=== PATIENT | female | born 1990 | race Caucasian/White ===

== ENCOUNTER → 2016-09-27 | Outpatient (CLI) | payer OTHER ==
--- NOTE | 2016-09-27 14:47 | US ---
EXAMINATION TYPE: US OB <= 14 wk fetus DATE OF EXAM: 09/27/2016 2:33 PM COMPARISON: NONE CLINICAL HISTORY: Confirm Dates, pt has no complaints at this time EXAM PERFORMED: Transabdominal (TA) EXAM MEASUREMENTS: GESTATIONAL AGE / DATING Physician Established: (9 weeks/0 days) EDC: 05/02/2017 Dates by LMP: (9 weeks/0 days) EDC: 05/02/2017 Dates by First Scan: No Prior Dates by Current Scan for: (9 weeks/4 days) EDC: 04/28/2017 MATERNAL ANATOMY Uterus: 9.6 x 6.6 x 7.6 cm Right Ovary: 2.5 x 1.7 x 1.8 cm Left Ovary: 3.2 x 2.4 x 2.8 cm Post CDS / Adnexa: wnl Presence of free fluid: No Presence of corpus luteal cyst: Left Ovary= 2.2 x 2.1 x 2.2 cm Presence of subchorionic bleed: No GESTATION / SURVEY CRL: 2.8 cm (9 weeks/4 days) MSD: wnl Yolk Sac (normal less than 6mm): 3mm Heart Rate: 170 bpm Rhythm: Normal IUP: Viable IUP Date of LMP: 07/26/2016 IMPRESSION: Single, viable IUP/ No abnormality seen at this time
== END | disposition home or self-care (01) ==
LOC: RADUSWWP 14:20
PROVIDERS: ATTEND Obstetrics & Gynecology
DX: Z36 Encounter for antenatal screening of mother (principal); Z3A.09 9 weeks gestation of pregnancy
CPT/HCPCS: 76801

== ENCOUNTER → 2016-09-28 | Outpatient (CLI) | payer OTHER ==
[2016-09-28 16:59] LABS: CH 30.5; CHCM 33.7; HCT 39.9 % (34.0-46.0); HDW 2.46; HGB 12.9 gm/dL (11.4-16.0); MCH 29.5 pg (25.0-35.0); MCHC 32.5 g/dL (31.0-37.0); MCV 90.9 fL (80.0-100.0); RBC 4.38 m/uL (3.80-5.40); RDW 12.8 % (11.5-15.5); WBC 8.5 k/uL (3.8-10.6)
[2016-09-28 17:19] LABS: Glucose 83 mg/dL (74-99); Non-African American GFR(MDRD) >60 (>60 ml/min/1.73 sqM)
[2016-09-28 17:48] LABS: Hepatitis B Surface Ag Index 0.06
[2016-09-29 00:54] LABS: Treponemal Ab Non-Reactive (Non-Reactive)
[2016-09-30 04:56] LABS: HIV-1/HIV-2 Ab Screen NONREAC (NON REAC)
== END | disposition home or self-care (01) ==
LOC: LABWHC1 15:49
PROVIDERS: ATTEND Obstetrics & Gynecology
DX: Z34.81 Encounter for supervision of other normal pregnancy, first trimester (principal); Z3A.00 Weeks of gestation of pregnancy not specified
CPT/HCPCS: 36415; 82565; 82947; 85027; 86762; 86777; 86778; 86780; 86850; 86900; 86901; 87340; 87389

== ENCOUNTER → 2016-11-29 | Outpatient (CLI) | payer OTHER ==
--- NOTE | 2016-11-29 12:08 | US ---
EXAMINATION TYPE: US OB anatomy transabd DATE OF EXAM: 11/29/2016 10:31 AM COMPARISON: 27 September 2016 HISTORY: Large for dates, 2, para 1 TECHNIQUE: Transabdominal (TA) EXAM MEASUREMENTS: GESTATIONAL AGE / DATING Physician Established: (18 weeks/0 days) EDC: 05/02/2017 Dates by LMP: (18 weeks/0 days) EDC: 05/02/2017 Dates by First Scan: (18 weeks/4 days) EDC: 04/28/2017 Dates by Current Scan for: (18 weeks/2 days) EDC: 04/30/2017 SURVEY IUP: Single PLACENTA: Posterior PREVIA: Low lying placenta: tip of placenta measuring 1.3cm from internal cervical os EMRE: 11.6 cm Normal CERVICAL LENGTH (transabdominal: norm > 3.0cm): 3.2 cm BIOMETRY PRESENTATION: Breech LIE: Variable BPD: 4.0 cm 18 weeks / 1 days HC: 15.0 cm 18 weeks / 1 days AC: 13.1 cm 18 weeks / 4 days FL: 2.8 cm 18 weeks / 3 days ESTIMATED WEIGHT IN GRAMS: 241 grams ESTIMATED WEIGHT IN LBS/OZS: 0 lbs. 9 oz. WEIGHT PERCENTAGE BASED ON ESTABLISHED DATE: 74 % HC/AC: 1.15 Normal FL/AC: 21.14 HEART RATE: 149 bpm RHYTHM: Normal ANATOMY SEEN (within normal limits): * Lateral Vent (< 1 cm) 0.7 cm * Cisterna Magna (< 1.1 cm) 0.4 cm * Nuchal Fold (< 0.6 cm) 0.2 cm * Cerebellum (varies with age) 1.8 cm Choroid Plexus (bilateral) Midline Falx Cavus Septi Pellucidi Outflow tracts: RVOT/LVOT Stomach Situs Diaphragm Kidneys (bilateral) Bladder Cord Insert Three Vessel Cord Arms (bilateral) Legs (bilateral) ANATOMY NOT SEEN: Due to position: spine down Longitudinal Spine Transverse Spine and nose and lips and four-chamber heart TECHNOLOGIST IMPRESSION: Viable single IUP measuring weeks days with a heart rate of 149bpm and an e stimated delivery date of 04/30/2017. Patient scheduled for OB callback on TuesdayDecember 13 at 3:40pm. IMPRESSION: Single viable intrauterine corresponding to ultrasound age dated 18 weeks 2 days with estim ated date of delivery 30 April 2017 by today's exam
== END | disposition home or self-care (01) ==
LOC: RADUSWWP 09:41
PROVIDERS: ATTEND Obstetrics & Gynecology
DX: O36.62X0 Maternal care for excessive fetal growth, second trimester, not applicable or unspecified (principal); Z3A.18 18 weeks gestation of pregnancy
CPT/HCPCS: 76811

== ENCOUNTER → 2016-12-13 | Outpatient (CLI) | payer OTHER ==
--- NOTE | 2016-12-13 20:59 | US ---
EXAMINATION TYPE: OB Call Back DATE OF EXAM: 12/13/2016 4:12 PM COMPARISON: 11/29/2016 CLINICAL HISTORY: O36.62X0, OB CALLBACK. GESTATIONAL AGE / DATING Dates by Initial Survey Scan: (20 weeks/0 days) EDC: 05/02/2017 HEART RATE: 152 bpm RHYTHM: Normal ANATOMY SEEN (second anatomic survey look): Four Chamber Heart: Nose / Lips: Longitudinal Spine: Transverse Spine: Limited exam demonstrates long and transverse spine, 4 ch heart, and nose/lips seen within normal limits on today's exam. IMPRESSION: Structures were reexamined that were not seen on previous exam and demonstrate no abnormality.
== END | disposition home or self-care (01) ==
LOC: RADUSWWP 15:43
PROVIDERS: ATTEND Obstetrics & Gynecology
DX: O36.62X0 Maternal care for excessive fetal growth, second trimester, not applicable or unspecified (principal)

== ENCOUNTER → 2017-01-17 | Outpatient (CLI) | payer OTHER ==
[2017-01-17 10:04] LABS: CHCM 32.9; HCT 35.1 % (34.0-46.0); HDW 2.67; HGB 11.4 gm/dL (11.4-16.0); MCH 30.8 pg (25.0-35.0); MCHC 32.5 g/dL (31.0-37.0); MCV 94.7 fL (80.0-100.0); RBC 3.71 m/uL (3.80-5.40); RDW 13.1 % (11.5-15.5); WBC 6.9 k/uL (3.8-10.6)
== END | disposition home or self-care (01) ==
LOC: LABWHC1 08:31
PROVIDERS: ATTEND Obstetrics & Gynecology
DX: Z34.82 Encounter for supervision of other normal pregnancy, second trimester (principal); Z3A.00 Weeks of gestation of pregnancy not specified
CPT/HCPCS: 36415; 82950; 85027

== ENCOUNTER 2017-04-05 00:25 | Outpatient (CLI) | payer OTHER ==
[2017-04-05 01:17] VITALS: BP 129/79; PULSE 91; RESP 18; TEMP 97
--- NOTE | 2017-04-05 08:27 | P.MSEPDOC ---
Presenting Problems - Arrival Data Date of Arrival on Unit: 04/05/17 Time of Arrival on Unit: 00:25 Mode of Transport: Wheelchair - Complaint OB-Reason for Admission/Chief Complaint: Observation/Evaluation Comment: possible rupture of membranes Medical History - Information : 2 Para: 1 Term: 1 : 0 Abortions: Spontaneous or Elective: 0 Number of Living Children: 1 - Gestational Age Expected Date of Delivery: 05/02/17 Gestational Age by ANNMARIE (wks/days): 36 Weeks and 1 Days Review of Systems - Review of Systems Constitutional: No problems Breast: No problems ENT: No problems Cardiovascular: No problems Respiratory: No problems Gastrointestinal: No problems Genitourinary: No problems Musculoskeletal: No problems Neurological: No problems Skin: No problems Vital Signs - Temperature Temperature: 97 F Temperature Source: Temporal Artery Scan - Pulse Right Pulse Rate: 91 Pulse Assessment Method: Automatic Cuff - Respirations Respiratory Rate: 18 Oxygen Delivery Method: Room Air - Blood Pressure Right Arm Blood Pressure: 129/79 Blood Pressure Mean: 95 Blood Pressure Source: Automatic Cuff Medical Screen Scoring (Pre) - Cervical Exam Dilation: 1-3 cm = 1 Membranes: Intact - Uterine Contractions Frequency: N/A Duration: N/A Intensity: N/A - Maternal Vital Signs Maternal Temperature: N/A Maternal Blood Pressure: N/A Signs of Preeclampsia: N/A Maternal Respirations: N/A - Maternal Trauma Maternal Trauma: N/A - Total Score Total Score (Pre): 1 - Level of Risk Level of Risk: Low (0-5) Physician Notification (Pre) - Physician Notified Physician Notified Date: 04/05/17 Physician Notified Time: 00:58 Physician/Practitioner Notifed:: Dr Lynch New Order Received: Yes - Notification Comment Comment: d/c pt home with instructions to come back if she starts to leak Disposition - Disposition OB Disposition: Discharge to home Discharge Date: 04/05/17 Discharge Time: 01:08 I agree with the RN Medical Screening Exam: Yes Risk & Benefit of care provided described in d/c instruction: Yes Diagnosis: FALSE LABOR AT OR AFTER 37 COMPLETED WEEKS OF GESTATION
== END 2017-04-05 01:08 | disposition home or self-care (01) ==
LOC: FBPOP 00:25
PROVIDERS: ATTEND Obstetrics & Gynecology
DX: O47.1 False labor at or after 37 completed weeks of gestation (principal); Z3A.36 36 weeks gestation of pregnancy
CPT/HCPCS: 59025; 84112; G0463; 99213

== ENCOUNTER 2017-04-15 13:25 | Outpatient (CLI) | payer OTHER ==
[2017-04-15 13:41] VITALS: BP 118/71; PULSE 96; RESP 18; TEMP 97.1
--- NOTE | 2017-04-16 08:50 | P.MSEPDOC ---
Presenting Problems - Arrival Data Date of Arrival on Unit: 04/15/17 Time of Arrival on Unit: 13:25 Mode of Transport: Ambulatory - Complaint OB-Reason for Admission/Chief Complaint: Decreased Movement Medical History - Information : 2 Para: 1 Term: 1 : 0 Abortions: Spontaneous or Elective: 0 Number of Living Children: 1 - Gestational Age Expected Date of Delivery: 05/02/17 Gestational Age by ANNMARIE (wks/days): 37 Weeks and 5 Days Review of Systems - Review of Systems Constitutional: No problems Breast: No problems ENT: No problems Cardiovascular: No problems Respiratory: No problems Gastrointestinal: No problems Genitourinary: No problems Musculoskeletal: No problems Neurological: No problems Skin: No problems Vital Signs - Temperature Temperature: 97.1 F Temperature Source: Axillary - Pulse Right Brachial Pulse Rate: 96 Pulse Assessment Method: Automatic Cuff - Respirations Respiratory Rate: 18 Oxygen Delivery Method: Room Air O2 Sat by Pulse Oximetry: 99 - Blood Pressure Right Arm Blood Pressure: 118/71 Blood Pressure Mean: 86 Blood Pressure Source: Automatic Cuff Medical Screen Scoring (Pre) - Cervical Exam Dilation: 1-3 cm = 1 Effacement: More than 50% = 2 Membranes: Intact - Uterine Contractions Frequency: > 5 minutes apart = 1 Duration: N/A Intensity: N/A - Maternal Vital Signs Maternal Temperature: N/A Maternal Blood Pressure: N/A Signs of Preeclampsia: N/A Maternal Respirations: N/A - Assessment Baseline FHR: 140 - Total Score Total Score (Pre): 4 Physician Notification (Post) - Physician Notified Physician Notified Date: 04/15/17 Physician Notified Time: 14:20 Physician/Practitioner Notified:: Dr. Lynch Spoke With: Dr. Lynch New Order Received: Yes - Notification Comment Comment: discharge home, return tomorrow for another NST if not feeling any movement, otherwise follow up in office at next scheduled appt Disposition - Disposition OB Disposition: Triage, Discharge to home, Written follow up instructions reviewed Discharge Date: 04/15/17 Discharge Time: 14:25 I agree with the RN Medical Screening Exam: Yes Risk & Benefit of care provided described in d/c instruction: Yes Diagnosis: DECREASED MOVEMENTS, THIRD TRIMESTER, FETUS 1
== END 2017-04-15 14:25 | disposition home or self-care (01) ==
LOC: FBPOP 13:25
PROVIDERS: ATTEND Obstetrics & Gynecology
DX: O36.8130 Decreased fetal movements, third trimester, not applicable or unspecified (principal); Z3A.37 37 weeks gestation of pregnancy
CPT/HCPCS: 59025; G0463; 99213

== ENCOUNTER 2017-04-15 19:10 | Inpatient (IN) | payer OTHER ==
[2017-04-15] MEDS ORDERED: LACTATED RINGERS 1,000 ML IV SCH (19:35)
[2017-04-15] MEDS: IBUPROFEN 600 MG TAB PO PRN (20:15)
[2017-04-15] MEDS ORDERED: ZOLPIDEM 5 MG TAB PO PRN (20:31)
[2017-04-15] MEDS ORDERED: BENZOCAINE/MENTHOL SPRAY 1 GM/SPRAY AEROSOL TOPICAL PRN (20:31)
[2017-04-15] MEDS ORDERED: WITCH HAZEL 1 EACH MED..PAD TOPICAL PRN (20:31)
[2017-04-15] MEDS ORDERED: HYDROCORTISONE 2.5% RECTAL CREAM 30 GM TUBE RECTAL PRN (20:31)
[2017-04-15] MEDS ORDERED: diphenhydrAMINE 50 MG CAP PO PRN (20:31)
[2017-04-15] MEDS ORDERED: SIMETHICONE 80 MG CHEWABLE PO PRN (20:31)
[2017-04-15] MEDS ORDERED: diphenhydrAMINE 50 MG/ML 1 ML VIAL IVP PRN ×2 (20:31)
[2017-04-15] MEDS ORDERED: Acetaminophen-Codeine 300-30mg TAB PO PRN ×2 (20:31)
[2017-04-15] MEDS ORDERED: LANOLIN CREAM 5 GM TUBE TOPICAL PRN (20:31)
[2017-04-15] MEDS ORDERED: diphenhydrAMINE 25 MG CAP PO PRN (20:31)
[2017-04-15] MEDS ORDERED: MEASLES-MUMPS-RUBELLA VACC/PF 12,500 UNIT/0.5 ML VIAL SQ ONE (20:37)
--- NOTE | 2017-04-15 20:37 | P.HPOB ---
History of Present Illness H&P Date: 04/15/17 Chief Complaint: Labor 27-year-old presents at 37 weeks and 4 days in active labor. Her cervix is 4-5 cm dilated, 100% effaced, -2 station. She is ren every 2 minutes. heart tones are 130-135 with moderate variability and reactive. Review of Systems All systems: negative Constitutional: Denies chills, Denies fever Eyes: denies blurred vision, denies pain Ears, nose, mouth and throat: Denies headache, Denies sore throat Cardiovascular: Denies chest pain, Denies shortness of breath Respiratory: Denies cough Gastrointestinal: Denies abdominal pain, Denies diarrhea, Denies nausea, Denies vomiting Genitourinary: Denies dysuria, Denies hematuria Musculoskeletal: Denies myalgias Integumentary: Denies pruritus, Denies rash Neurological: Denies numbness, Denies weakness Psychiatric: Denies anxiety, Denies depression Endocrine: Denies fatigue, Denies weight change Past Medical History Past Medical History: No Reported History Additional Past Medical History / Comment(s): migraines. Obstetric history: First was a vaginal delivery at 38 weeks. This is her second and she's had care with co since 6 weeks gestation. Blood type O+, antibodies negative, rubella nonimmune, HIV nonreactive, treponema antibody negative, toxoplasmosis negative, hepatitis B negative. Normal 1 hour glucose tolerance test, normal me ultrasounds, GBS negative. History of Any Multi-Drug Resistant Organisms: None Reported Past Surgical History: Tonsillectomy Past Anesthesia/Blood Transfusion Reactions: No Reported Reaction Past Psychological History: No Psychological Hx Reported Smoking Status: Never smoker Past Alcohol Use History: None Reported Past Drug Use History: None Reported Medications and Allergies Home Medications Medication Instructions Recorded Confirmed Type Pnv,Calcium 72/Iron/Folic Acid 1 tab PO DAILY 04/05/17 04/05/17 History [ Plus Tablet] Allergies Allergy/AdvReac Type Severity Reaction Status Date / Time amoxicillin Allergy Rash/Hives Verified 04/15/17 19:14 Penicillins Allergy Rash/Hives Verified 04/15/17 19:14 Exam Osteopathic Statement: *. No significant issues noted on an osteopathic structural exam other than those noted in the History and Physical/Consult. - Vital Signs Vital signs: Intake and Output 04/15/17 04/15/1704/15/17 06:59 14:59 22:59 Other: Weight 77.111 kg Patient Weight 04/16/17 06:59 Weight 77.111 kg Heart: Regular rate and rhythm Lungs: Clear to auscultation bilaterally Abdomen: Soft, nontender Extremities: Negative Homans sign Assessment and Plan (1) Normal labor Status: Acute Plan: 1. Admit to family place 2. Expectant management 3. Anticipate normal vaginal delivery
--- NOTE | 2017-04-15 20:43 | P.PROBDLV ---
Vaginal Delivery Note - . Vaginal Delivery Note: 27-year-old presents at 37 weeks and 4 days in active labor. Her cervix was 4-5 cm dilated, her percent effaced, and -1 station. Her water spontaneously ruptured at 1800 with meconium fluid. She is ren every 2 minutes. heart tones 140 145 with moderate variability and reactive. She quickly progressed to complete pushed and delivered a viable male over intact perineum at 1950. Head delivered OA, anterior shoulder delivered gentle downward traction followed by posterior shoulder and rest of body. Nose and mouth bulb suctioned, cord cut and cut, placed on mother's abdomen. Apgars 8, 9, weight pending. Placenta delivered spontaneously, intact with three-vessel cord at 1951. Vagina, cervix, perineum inspected. No lacerations noted. Estimated blood loss 150 mL.
[2017-04-15] MEDS ORDERED: OXYTOCIN 20 UNITS/1000 ML NS 1,000 ML IV SCH (20:45)
[2017-04-15 21:24] LABS: Basophils % (A) 0 %; CH 27.4; CHCM 32.7; Eosinophils # (A) 0.1 k/uL (0-0.7); Eosinophils % (A) 1 %; HCT 35.8 % (34.0-46.0); HDW 3.09; HGB 11.9 gm/dL (11.4-16.0); Luc # (Auto) 0.14; Luc % (Auto) 1; Lymphocytes # (A) 1.3 k/uL (1.0-4.8); Lymphocytes % (A) 11 %; MCHC 33.2 g/dL (31.0-37.0); MCV 84.3 fL (80.0-100.0); Mean Platelet Volume 8.8; Monocytes # (A) 0.5 k/uL (0-1.0); Monocytes % (A) 4 %; Neutrophils # (A) 10.4 k/uL (1.3-7.7); Neutrophils % (A) 83 %; RBC 4.24 m/uL (3.80-5.40); RDW 13.5 % (11.5-15.5); WBC 12.6 k/uL (3.8-10.6)
[2017-04-15 23:14] VITALS: BMI 31.1
[2017-04-16] MEDS: ACETAMINOPHEN TAB 325 MG TAB PO PRN ×4 (00:06→21:36)
[2017-04-16 00:27] VITALS: RESP 16
[2017-04-16] MEDS: IBUPROFEN 600 MG TAB PO PRN ×3 (06:14→19:28)
--- NOTE | 2017-04-16 08:51 | P.MSEPDOC ---
Presenting Problems - Arrival Data Date of Arrival on Unit: 04/15/17 Time of Arrival on Unit: 19:10 Mode of Transport: Wheelchair - Complaint OB-Reason for Admission/Chief Complaint: Possible Onset of Labor, Rule Out SROM Comment: 1800 mec fluid? Medical History - Information : 2 Para: 1 Term: 1 : 0 Abortions: Spontaneous or Elective: 0 Number of Living Children: 1 - Gestational Age Expected Date of Delivery: 05/02/17 Gestational Age by ANNMARIE (wks/days): 37 Weeks and 5 Days Review of Systems - Review of Systems Constitutional: No problems Breast: No problems ENT: No problems Cardiovascular: No problems Respiratory: No problems Gastrointestinal: No problems Genitourinary: No problems Musculoskeletal: No problems Neurological: No problems Skin: No problems Vital Signs - Temperature Temperature: 98.1 F Temperature Source: Oral - Pulse Right Pulse Rate: 91 Pulse Assessment Method: Auscultation - Respirations Respiratory Rate: 16 Oxygen Delivery Method: Room Air - Blood Pressure Right Arm Blood Pressure: 110/71 Blood Pressure Mean: 84 Blood Pressure Source: Automatic Cuff Medical Screen Scoring (Pre) - Cervical Exam Dilation: 4-7 cm = 2 Effacement: More than 50% = 2 Membranes: Ruptured = 3 - Uterine Contractions Frequency: > or = 36 weeks =2 Duration: > 40 seconds = 2 Intensity: Contraction palpated strong = 1 - Maternal Vital Signs Maternal Temperature: N/A Maternal Blood Pressure: Systolic >139 = 2 Signs of Preeclampsia: N/A Maternal Respirations: N/A - Maternal Trauma Maternal Trauma: N/A - Assessment Baseline FHR: 150 Heart Rate - NICHD Category: Category I (Normal) = 0 NST: Reactive Position: N/A - Total Score Total Score (Pre): 14 - Level of Risk Level of Risk: High (10+) Physician Notification (Pre) - Physician Notified Physician Notified Date: 04/15/17 Physician Notified Time: 19:20 Spoke With: Syed New Order Received: Yes - Notification Comment Comment: Syed at bedside, orders admit for labor Disposition - Disposition OB Disposition: Admit, LDRP Suite I agree with the RN Medical Screening Exam: Yes Risk & Benefit of care provided described in d/c instruction: Yes Diagnosis: ENCOUNTER FOR FULL-TERM UNCOMPLICATED DELIVERY
--- NOTE | 2017-04-16 08:54 | P.PNOBGVD ---
Subjective - Subjective Principal diagnosis: S/P NVD PPD #1 Interval history: Pt seen and examined. Denies N/V, F/C, CP, SOB, calf pain. Patient reports: Reports appetite normal, Reports voiding normally, Reports pain well controlled, Reports ambulating normally Objective - Latest Vital Signs Latest vital signs: Vital Signs Temp Pulse Resp BP Pulse Ox 04/16/17 08:51 98.1 F 91 16 110/71 04/16/17 08:00 98.1 F 91 16 110/71 04/16/17 03:52 98.4 F 80 16 98/52 04/16/17 00:00 98.4 F 103 H 16 117/67 04/15/17 22:19 98.1 F 116 H 18 153/92 95 04/15/17 22:15 99.3 F 92 16 121/73 04/15/17 21:45 86 16 109/68 04/15/17 21:15 82 16 120/65 04/15/17 21:00 85 16 118/68 04/15/17 20:45 98 16 122/70 04/15/17 20:30 96 16 126/73 04/15/17 20:15 97.6 F 90 16 124/73 Intake and Output 04/15/17 04/16/17 04/16/17 22:59 06:59 14:59 Intake Total 500 1400 Balance 500 1400 Intake: IV 1400 Lactated Ringers 1,000 ml 600 @ 125 mls/hr IV .Q8H [facility] Rx#:[id number] Oxytocin 20 Units/1000 ml 800 Ns 1,000 ml @ Per Protocol IV .Q0M [facility] Rx#: [id number] Intake, IV Titration 500 Amount Oxytocin 20 Units/1000 ml 500 Ns 1,000 ml @ Per Protocol IV .Q0M [facility] Rx#: [id number] Other: # Voids 1 2 1 Weight 77.111 kg - Exam Lungs: bilateral: normal Chest: Normal S1, Normal S2 Extremities: Present: normal Abdomen: Present: normal appearance, soft Uterus: Present: normal, firm - Labs Labs: Abnormal Lab Results - Last 24 Hours (Table) 04/15/17 Range/Units 19:35 WBC 12.6 H (3.8-10.6) k/uL Neutrophils # 10.4 H (1.3-7.7) k/uL Assessment and Plan (1) Normal labor Current Visit: Yes Status: Resolved Code(s): O80 - ENCOUNTER FOR FULL-TERM UNCOMPLICATED DELIVERY; Z37.9 - OUTCOME OF DELIVERY, UNSPECIFIED SNOMED Code(s ): 33780232 (2) Normal vaginal delivery Narrative/Plan: 1. cont pp care Current Visit: Yes Status: Acute Code(s): O80 - ENCOUNTER FOR FULL-TERM UNCOMPLICATED DELIVERY SNOMED Code(s): 34817250
[2017-04-16] MEDS: SENNOSIDES-DOCUSATE SODIUM 1 EACH TAB PO SCH ×2 (12:15→19:28)
[2017-04-16 23:53] VITALS: TEMP 97.9
[2017-04-17] MEDS: IBUPROFEN 600 MG TAB PO PRN ×2 (04:42→14:50)
[2017-04-17] MEDS: ACETAMINOPHEN TAB 325 MG TAB PO PRN ×2 (08:24→14:51)
[2017-04-17 08:30] VITALS: BP 118/73; PULSE 86
[2017-04-17] MEDS: SENNOSIDES-DOCUSATE SODIUM 1 EACH TAB PO SCH (08:30)
--- NOTE | 2017-04-17 10:00 | P.DS ---
Providers Date of admission: 04/15/17 19:23 Expected date of discharge: 04/17/17 Attending physician: Uyen Lynch Primary care physician: Stated None - Discharge Diagnosis(es) (1) Normal labor Current Visit: Yes Status: Resolved (2) Normal vaginal delivery Current Visit: Yes Status: Acute Hospital Course: Pt presented in active labor. She underwent a normal vaginal delivery and had an uncomplicated post course. She will be discharged post day #2 in stable condition to follow up with me in 6 weeks. Plan - Discharge Summary New Discharge Prescriptions: New Ibuprofen [Motrin] 600 mg PO Q6HR PRN #30 tab PRN Reason: Mild Pain Or Fever >= 100.5 No Action Pnv,Calcium 72/Iron/Folic Acid [ Plus Tablet] 1 tab PO DAILY Discharge Medication List Pnv,Calcium 72/Iron/Folic Acid [ Plus Tablet] 1 tab PO DAILY 04/05/17 [ History] Ibuprofen [Motrin] 600 mg PO Q6HR PRN #30 tab 04/17/17 [Rx] Follow up Appointment(s)/Referral(s): Uyen Lynch DO [Doctor of Osteopathic Medicine] - 6 Weeks Discharge Disposition: HOME SELF-CARE
== END 2017-04-17 15:35 | disposition home or self-care (01) | DRG 775 ==
LOC: FBPOP 19:10 → 4FBP 19:23
PROVIDERS: ADMIT Obstetrics & Gynecology; ATTEND Obstetrics & Gynecology
PROC: 10E0XZZ Delivery of Products of Conception, External Approach (ICD-10-PCS; principal; 2017-04-15)
DX: O77.0 Labor and delivery complicated by meconium in amniotic fluid (principal); G43.909 Migraine, unspecified, not intractable, without status migrainosus; O99.350 Diseases of the nervous system complicating pregnancy, unspecified trimester; Z37.0 Single live birth; Z3A.37 37 weeks gestation of pregnancy
CPT/HCPCS: 84112; 85025; 88307; 90707; 99213

== ENCOUNTER → 2017-12-02 | Outpatient (CLI) | payer OTHER ==
--- NOTE | 2017-12-05 08:08 | USB ---
Reason for exam: clinical finding. Indicated problem(s): lump or thickening in the left breast. Physical Findings: Nurse Summary: bilateral nodularity, more prominent left upper outer quadrant 12 o'clock, all soft, movable (nurse ts). US Breast BILAT Left breast ultrasound includes all four quadrants, the retroareolar region and axilla. Finding demonstrates no cystic or solid lesion seen. Right breast ultrasound includes all four quadrants, the retroareolar region and axilla. Finding demonstrates no cystic or solid lesion seen. These results were verbally communicated with the patient and result sheet given to the patient on 12/02/17. ASSESSMENT: Negative, BI-RAD 1 RECOMMENDATION: Routine screening mammogram of both breasts at age 41. Manage patient on a clinical basis.
== END | disposition home or self-care (01) ==
LOC: RADUSWWP 08:44
PROVIDERS: ATTEND Obstetrics & Gynecology
DX: N63.20 Unspecified lump in the left breast, unspecified quadrant (principal)

== ENCOUNTER → 2018-06-23 | Outpatient (CLI) | payer OTHER ==
--- NOTE | 2018-06-23 09:09 | US ---
EXAMINATION TYPE: Transabdominal DATE OF EXAM: 12/20/17 COMPARISON: NONE CLINICAL HISTORY: Z36 confirm dates. EXAM PERFORMED: Transabdominal (TA) EXAM MEASUREMENTS: GESTATIONAL AGE / DATING Physician Established: Not yet established Dates by LMP: (8 weeks/3 days) EDC: 01/30/19 Dates by First Scan: No previous this is first scan Dates by Current Scan for: (8 weeks/5 days) EDC: 01/28/19 MATERNAL ANATOMY Uterus: 10.2 x 7.3 x 6.0cm Right Ovary: 3.3 x 2.0 x 2.5cm Left Ovary: 2.7 x 1.7 x 1.7cm Post CDS / Adnexa: wnl Presence of free fluid: no Presence of corpus luteal cyst: probable measuring 2.3 x 1.5 x 1.8cm Presence of subchorionic bleed: no GESTATION / SURVEY CRL: 2.1 (8 weeks/5 days) Yolk Sac (normal less than 6mm): 2mm Heart Rate: 175 bpm Rhythm: Normal IUP: Viable IUP Date of LMP: 04/25/18 Beta HcG (if available): Not available at this time IMPRESSION: Findings compatible with an 8 week 5 day gestation with an EDC of 01/28/2019 and the estimated heart r ate 175 bpm
== END | disposition home or self-care (01) ==
LOC: RADUSWWP 08:03
PROVIDERS: ATTEND Obstetrics & Gynecology
DX: Z36.89 Encounter for other specified antenatal screening (principal); Z3A.08 8 weeks gestation of pregnancy
CPT/HCPCS: 76801

== ENCOUNTER 2018-07-03 09:32 | Emergency (ER) | payer OTHER ==
[2018-07-03] MEDS ORDERED: METOCLOPRAMIDE 5 MG/ML 2 ML VIAL IVP STA (10:32)
[2018-07-03] MEDS ORDERED: SODIUM CHLORIDE 0.9% 1,000 ML IV STA (10:32)
[2018-07-03] MEDS ORDERED: diphenhydrAMINE 50 MG/ML 1 ML VIAL IVP STA (10:32)
--- NOTE | 2018-07-03 11:36 | ED ---
General Adult HPI - General Chief complaint: Dizziness Stated complaint: 10 weeks , visual disturbance, dizziness Time Seen by Provider: 07/03/18 10:21 Source: patient, RN notes reviewed Mode of arrival: ambulatory Limitations: no limitations - History of Present Illness Initial comments: Patient is a 28-year-old female who is approximately 10 weeks by ultrasound, presented to the emergency room today with chief complaint of headache and feeling dizzy and lightheaded. She states that approximately 2 hours ago she did notice a bilateral vision seemed to be very blurry. She states that vision has improved at this time she still sees some spots in the peripheral bilaterally. She states that after the vision became blurry she began to feel dizzy lightheaded and had an episode of vomiting. Patient does admit that she has mild headache located behind her eyes. States she's had headaches similar to this in the past. She denies any other complaints or symptoms at this time. Patient denies any recent fever, chills, shortness of breath, chest pain, back pain, abdominal pain, numbness or tingling, dysuria or hematuria, constipation or diarrhea, or any other complaints. - Related Data Home Medications Medication Instructions Recorded Confirmed No Known Home Medications 07/03/18 07/03/18 Allergies Allergy/AdvReac Type Severity Reaction Status Date / Time amoxicillin Allergy Rash/Hives Verified 07/03/18 10:42 Penicillins Allergy Rash/Hives Verified 07/03/18 10:42 Review of Systems ROS Statement: Those systems with pertinent positive or pertinent negative responses have been documented in the HPI. ROS Other: All systems not noted in ROS Statement are negative. Past Medical History Past Medical History: No Reported History Additional Past Medical History / Comment(s): migraines. Obstetric history: First was a vaginal delivery at 38 weeks. This is her second and she's had care with id since 6 weeks gestation. Blood type O+, antibodies negative, rubella nonimmune, HIV nonreactive, treponema antibody negative, toxoplasmosis negative, hepatitis B negative. Normal 1 hour glucose tolerance test, normal me ultrasounds, GBS negative. History of Any Multi-Drug Resistant Organisms: None Reported Past Surgical History: Tonsillectomy Past Anesthesia/Blood Transfusion Reactions: No Reported Reaction Past Psychological History: No Psychological Hx Reported Smoking Status: Never smoker Past Alcohol Use History: None Reported Past Drug Use History: None Reported - Past Family History Mother Family Medical History: No Reported History General Exam - General Exam Comments Initial Comments: General: The patient is awake and alert, in no distress, and does not appear acutely ill. Eye: Pupils are equal, round and reactive to light. Extra-ocular movements are intact. No nystagmus. There is normal conjunctiva bilaterally. No signs of icterus. Ears, nose, mouth and throat: There are moist mucous membranes and no oral lesions. Neck: The neck is supple, there is no tenderness or JVD. Cardiovascular: There is a regular rate and rhythm. No murmur, rub or gallop is appreciated. Respiratory: Lungs are clear to auscultation, respirations are non-labored, breath sounds are equal. No wheezes, stridor, rales, or rhonchi. Gastrointestinal: Soft, non-distended, non-tender abdomen without masses or organomegaly noted. There is no rebound or guarding present. No CVA tenderness. Musculoskeletal: Normal ROM, no tenderness. Sensation intact. Strength 5/5. Pulses equal bilaterally 2+. Neurological: A&O x 3. CN II-XII intact, There are no obvious motor or sensory deficits. Coordination appears grossly intact. Speech is normal. Skin: Skin is warm and dry and no rashes or lesions are noted. Psychiatric: Cooperative, appropriate mood & affect, normal judgment. Limitations: no limitations Course Vital Signs 07/03/18 09:37 Temperature 98.3 F Pulse Rate 90 Respiratory 20 Rate Blood Pressure 122/76 O2 Sat by Pulse 100 Oximetry Medical Decision Making - Medical Decision Making Patient labs have been reviewed. Patient reexamined at this time shows no signs of distress. She does admit that her symptoms have resolved here in emergency room. She admits that she's had migraine headaches in the past that were similar to this. Patient was given Reglan and IV fluids. She is feeling much better at this time headache is gone. Visual change is gone. She has been up and toward here in emergency room doing well. Will be discharged home to follow-up with her INSTRUCTIONAL TECHNOLOGY FACILITATOR. Advised to return for any other concerns. - Lab Data Result diagrams: 07/03/18 11:34 07/03/18 11:34 Lab Results 07/03/18 07/03/18 07/03/18 Range/Units 11:20 11:34 11:34 WBC 7.0 (3.8-10.6) k/uL RBC 4.79 (3.80-5.40) m/uL Hgb 14.3 (11.4-16.0) gm/dL Hct 41.3 (34.0-46.0) % MCV 86.1 (80.0-100.0) fL MCH 29.8 (25.0-35.0) pg MCHC 34.6 (31.0-37.0) g/dL RDW 12.9 (11.5-15.5) % Plt Count 188 (150-450) k/uL Neutrophils % 78 % Lymphocytes % 16 % Monocytes % 3 % Eosinophils % 2 % Basophils % 0 % Neutrophils # 5.5 (1.3-7.7) k/uL Lymphocytes # 1.2 (1.0-4.8) k/uL Monocytes # 0.2 (0-1.0) k/uL Eosinophils # 0.2 (0-0.7) k/uL Basophils # 0.0 (0-0.2) k/uL Sodium 138 (137-145) mmol/L Potassium 4.3 (3.5-5.1) mmol/L Chloride 109 H (98-107) mmol/L Carbon Dioxide 21 L (22-30) mmol/L Anion Gap 8 mmol/L BUN 12 (7-17) mg/dL Creatinine 0.52 (0.52-1.04) mg/dL Est GFR (CKD-EPI)AfAm >90 (>60 ml/min/1.73 sqM) Est GFR (CKD-EPI)NonAf >90 (>60 ml/min/1.73 sqM) Glucose 83 (74-99) mg/dL Calcium 9.0 (8.4-10.2) mg/dL Total Bilirubin 0.4 (0.2-1.3) mg/dL AST 17 (14-36) U/L ALT 19 (9-52) U/L Alkaline Phosphatase 52 (38-126) U/L Total Protein 7.0 (6.3-8.2) g/dL Albumin 3.9 (3.5-5.0) g/dL Urine Color Yellow Urine Appearance Cloudy H (Clear) Urine pH 6.0 (5.0-8.0) Ur Specific Grass Range 1.015 (1.001-1.035) Urine Protein Negative (Negative) Urine Glucose (UA) Negative (Negative) Urine Ketones Negative (Negative) Urine Blood Negative (Negative) Urine Nitrite Negative (Negative) Urine Bilirubin Negative (Negative) Urine Urobilinogen <2.0 (<2.0) mg/dL Ur Leukocyte Esterase Moderate H (Negative) Urine RBC 3 (0-5) /hpf Urine WBC 3 (0-5) /hpf Ur Squamous Epith Cells 27 H (0-4) /hpf Urine Bacteria Rare H (None) /hpf Urine Mucus Rare H (None) /hpf Disposition Clinical Impression: Migraine Disposition: HOME SELF-CARE Condition: Good Instructions: Migraine Headache (ED) Additional Instructions: Please use medication as discussed. Please follow-up with INSTRUCTIONAL TECHNOLOGY FACILITATOR/family doctor in the next 2 days of symptoms have not improved. Please return to emergency room if the symptoms increase or worsen or for any other concerns. Is patient prescribed a controlled substance at d/c from ED?: No Referrals: Yobani Champagne MD [Primary Care Provider] - 1-2 days Uyen Lynch DO [Doctor of Osteopathic Medicine] - 1-2 days Time of Disposition: 12:53
[2018-07-03 11:54] LABS: Basophils % (A) 0 %; Eosinophils # (A) 0.2 k/uL (0-0.7); Eosinophils % (A) 2 %; HCT 41.3 % (34.0-46.0); HGB 14.3 gm/dL (11.4-16.0); Lymphocytes # (A) 1.2 k/uL (1.0-4.8); Lymphocytes % (A) 16 %; MCH 29.8 pg (25.0-35.0); MCHC 34.6 g/dL (31.0-37.0); MCV 86.1 fL (80.0-100.0); Mean Platelet Volume 7.3; Monocytes # (A) 0.2 k/uL (0-1.0); Monocytes % (A) 3 %; Neutrophils # (A) 5.5 k/uL (1.3-7.7); Neutrophils % (A) 78 %; Platelet Count 188 k/uL (150-450); RBC 4.79 m/uL (3.80-5.40); RDW 12.9 % (11.5-15.5)
[2018-07-03 12:08] LABS: ALT 19 U/L (9-52); AST 17 U/L (14-36); Albumin 3.9 g/dL (3.5-5.0); Alkaline Phosphatase 52 U/L (38-126); Anion Gap 8 mmol/L; Blood Urea Nitrogen 12 mg/dL (7-17); Carbon Dioxide 21 mmol/L (22-30); Chloride 109 mmol/L (98-107); Glucose 83 mg/dL (74-99); Potassium 4.3 mmol/L (3.5-5.1); Sodium 138 mmol/L (137-145); Total Bilirubin 0.4 mg/dL (0.2-1.3)
[2018-07-03 12:31] LABS: Appearance,Urine Cloudy (Clear); Bacteria,Urine Rare /hpf; Bilirubin,Urine Negative (Negative); Blood,Urine Negative (Negative); Color,Urine Yellow; Glucose,Urine (UA) Negative (Negative); Ketones,Urine Negative (Negative); Leukocyte Esterase,Urine Moderate (Negative); Mucus,Urine Rare /hpf; Nitrite,Urine Negative (Negative); Protein,Urine Negative (Negative); RBC,Urine 3 /hpf (0-5); Specific Gravity,Urine 1.015 (1.001-1.035); Squamous Epithelial Cell,Urine 27 /hpf (0-4); Urobilinogen,Urine <2.0 mg/dL (<2.0)
[2018-07-03 13:17] VITALS: BP 118/80; PULSE 86; RESP 16; TEMP 98.2
== END 2018-07-03 13:15 | disposition home or self-care (01) ==
LOC: EC 09:32
DX: O99.351 Diseases of the nervous system complicating pregnancy, first trimester (principal); G43.909 Migraine, unspecified, not intractable, without status migrainosus; Z88.0 Allergy status to penicillin; Z3A.10 10 weeks gestation of pregnancy
CPT/HCPCS: 36415; 80053; 85025; 81001; 99284; 96374; 96375; 96361; J1200; J2765

== ENCOUNTER 2019-01-14 04:54 | Outpatient (CLI) | payer OTHER ==
[2019-01-14 05:35] LABS: Appearance,Urine Turbid (Clear); Bilirubin,Urine Negative (Negative); Blood,Urine Large (Negative); Color,Urine Red; Glucose,Urine (UA) Negative (Negative); Ketones,Urine Trace (Negative); Leukocyte Esterase,Urine Large (Negative); Mucus,Urine Few /hpf; Nitrite,Urine Negative (Negative); Protein,Urine 1+ (Negative); RBC,Urine >182 /hpf (0-5); Specific Gravity,Urine 1.023 (1.001-1.035); Urobilinogen,Urine <2.0 mg/dL (<2.0)
[2019-01-14 07:15] VITALS: BP 136/83; PULSE 110; RESP 16; TEMP 98.4
--- NOTE | 2019-01-14 07:19 | US ---
EXAM: US Retroperitoneal Complete, Renal CLINICAL HISTORY: Hematuria. TECHNIQUE: Real-time ultrasound of the retroperitoneum (complete) with image documentation. COMPARISON: No relevant prior studies available. FINDINGS: Right kidney: Unremarkable. Right kidney measures 10.5 x 4.3 x 5.2 cm. No calculi visualized. No solid mass. No hydronephrosis. Left kidney: Unremarkable. Left kidney measures 10.3 x 3.0 x 5.0 cm. No calculi visualized. No solid mass. No hydronephrosis. Bladder: Debris in the bladder. Ureteral jets not seen. Suboptimal visualization due to gravid uterus. IMPRESSION: 1. Unremarkable renal ultrasound. No hydronephrosis. 2. Suboptimal visualization of bladder due to gravid uterus. Debris seen within bladder. Ureteral jets not seen. Correlate with urinalysis.
--- NOTE | 2019-01-14 07:34 | US ---
EXAM: US After First Trimester, Transabdominal CLINICAL HISTORY: Vaginal bleeding. TECHNIQUE: Real-time transabdominal obstetrical ultrasound of the maternal pelvis and a second or third trimester with image documentation. COMPARISON: No relevant prior studies available. FINDINGS: Fetus: Single live intrauterine gestation. Heart rate: heart rate 160 bpm. Presentation: Vertex. Placenta: Posterior placental location. No evidence of previa. Amniotic fluid: Amniotic fluid index measures 15.11 cm. Anatomy: anatomy not assessed on this examination. Intracranial/face anatomy not seen. Spinal anatomy not seen. Abdominal anatomy not seen. Extremities not seen. Four-chamber heart not seen. Umbilical cord not seen. BIOMETRICS Gestational age: 35 weeks 6 days ANNMARIE: 02[birth year]12/2018 EFW: 2841 g (6 lbs. 4 oz.) BPD: 36 weeks 3 days HC: 35 weeks 6 days AC: 35 weeks 6 days FL: 36 weeks 2 days MATERNAL: Uterus: Gravid uterus with single live intrauterine gestation. Cervix: Cervix measures 2.68 cm and appears closed. Free fluid: No free fluid. IMPRESSION: 1. Single live intrauterine measuring 35 weeks 6 days with heart rate 160 bpm. 2. Shortened cervix measuring 2.68 cm. Cervix appears closed. Recommend clinical correlation and follow-up. 3. Vertex presentation. 4. Normal amniotic fluid index.
--- NOTE | 2019-01-14 09:45 | P.MSEPDOC ---
Presenting Problems - Arrival Data Date of Arrival on Unit: 01/14/19 Time of Arrival on Unit: 05:00 Mode of Transport: Wheelchair - Complaint OB-Reason for Admission/Chief Complaint: Garrett Bleeding Medical History - Information : 3 Para: 2 Term: 2 : 0 Abortions: Spontaneous or Elective: 0 Number of Living Children: 2 - Gestational Age Gestational Age by ANNMARIE (wks/days): 37 Weeks and 5 Days Review of Systems - Review of Systems Constitutional: No problems Breast: No problems ENT: No problems Cardiovascular: No problems Respiratory: No problems Gastrointestinal: No problems Genitourinary: No problems Musculoskeletal: No problems Neurological: No problems Skin: No problems Vital Signs - Temperature Temperature: 98.4 F Temperature Source: Tympanic - Pulse Right Brachial Pulse Rate: 110 Pulse Assessment Method: Automatic Cuff - Respirations Respiratory Rate: 16 Oxygen Delivery Method: Room Air - Blood Pressure Right Arm Blood Pressure: 136/83 Blood Pressure Mean: 100 Blood Pressure Source: Automatic Cuff Medical Screen Scoring (Pre) - Cervical Exam Dilation: 1-3 cm = 1 Effacement: More than 50% = 2 Membranes: Intact - Uterine Contractions Frequency: > 5 minutes apart = 1 Duration: N/A Intensity: N/A - Maternal Vital Signs Maternal Temperature: N/A Maternal Blood Pressure: N/A Signs of Preeclampsia: N/A Maternal Respirations: N/A - Pain Assessment Pain Location and Character: Abdomen Pain Scale Used: Numeric (1 - 10) Pain Intensity: 2 Pain Management Goal: 2 Pain Description: *Acute, Cramping Pain Radiation Location: na Pain Frequency: Intermittent Pain Duration: 20 Pain Duration Units: Minutes Pain Behavior: Vocalization Pain Aggravating Factors: None - Maternal Trauma Maternal Trauma: N/A - Assessment Baseline FHR: 135 Heart Rate - NICHD Category: Category I (Normal) = 0 NST: Reactive Position: N/A Station: N/A - Total Score Total Score (Pre): 4 Physician Notification (Pre) - Physician Notified Physician Notified Date: 01/14/19 Physician Notified Time: 05:23 Physician/Practitioner Notifed:: Dr. Flores Spoke With: Dr. Flores New Order Received: Yes - Notification Comment Comment: OB/kidney/bladder U/S Medical Screen Scoring (Post) - Cervical Exam Dilation: 1-3 cm = 1 Effacement: More than 50% = 2 Membranes: Intact - Uterine Contractions Frequency: > 5 minutes apart = 1 Duration: N/A Intensity: N/A - Maternal Vital Signs Maternal Temperature: N/A Maternal Blood Pressure: N/A Signs of Preeclampsia: N/A Maternal Respirations: N/A - Pain Assessment Pain Location and Character: Abdomen Pain Scale Used: Numeric (1 - 10) Pain Intensity: 1 Pain Description: *Acute, Cramping Pain Frequency: Intermittent Pain Duration Units: Minutes Pain Behavior: Vocalization Pain Aggravating Factors: Contractions - Maternal Trauma Maternal Trauma: N/A - Assessment Heart Rate: 145 Heart Rate - NICHD Category: Category I (Normal) = 0 NST: Reactive Position: N/A Station: N/A - Total Score Total Score (Post): 4 - Post Treatment Level of Risk Post Treatment Level of Risk: Low (0-5) Physician Notification (Post) - Physician Notified Physician Notified Date: 01/14/19 Physician Notified Time: 07:51 Physician/Practitioner Notified:: Dr. Flores Spoke With: Dr. Flores New Order Received: Yes - Notification Comment Comment: Order to give pt option to stay as OBV with IV hydration and monitor urine for kidney stones. Or allow pt to be discharged home with instructions to increase fluid intake, send with hat and strainer to monitor urine and to return if symptoms worsen. Pt wishes to be discharged home at this time. Verbalizes understanding of worsening s/s and use of strainer. Reports appointment tomorrow with Syed in office. Disposition - Disposition OB Disposition: Discharge to home Discharge Date: 01/14/19 Discharge Time: 08:00 I agree with the RN Medical Screening Exam: Yes Risk & Benefit of care provided described in d/c instruction: Yes Diagnosis: HEMATURIA, UNSPECIFIED
== END 2019-01-14 07:51 | disposition home or self-care (01) ==
LOC: FBPOP 04:54
PROVIDERS: ATTEND Obstetrics & Gynecology
DX: O99.89 Other specified diseases and conditions complicating pregnancy, childbirth and the puerperium (principal); R31.9 Hematuria, unspecified; Z3A.37 37 weeks gestation of pregnancy
CPT/HCPCS: 59025; 81001; 76805; 76770; G0463; 99213

== ENCOUNTER 2019-01-27 20:50 | Outpatient (CLI) | payer OTHER ==
[2019-01-27 23:08] VITALS: BP 136/82; PULSE 110; RESP 16; TEMP 98.4
--- NOTE | 2019-01-28 03:35 | P.MSEPDOC ---
Presenting Problems - Arrival Data Date of Arrival on Unit: 01/27/19 Time of Arrival on Unit: 20:50 Mode of Transport: Ambulatory - Complaint OB-Reason for Admission/Chief Complaint: Rule Out PROM Comment: questionable ROM 1700 clear fluid Medical History - Information : 3 Para: 2 Term: 2 : 0 Abortions: Spontaneous or Elective: 0 Number of Living Children: 2 - Gestational Age Gestational Age by ANNMARIE (wks/days): 39 Weeks and 4 Days Review of Systems - Review of Systems Constitutional: No problems Breast: No problems ENT: No problems Cardiovascular: No problems Respiratory: No problems Gastrointestinal: No problems Genitourinary: No problems Musculoskeletal: No problems Neurological: No problems Skin: No problems Vital Signs - Temperature Temperature: 98.4 F Temperature Source: Temporal Artery Scan - Pulse Right Sitting Brachial Pulse Rate: 110 Pulse Assessment Method: Automatic Cuff - Respirations Respiratory Rate: 16 Oxygen Delivery Method: Room Air - Blood Pressure Right Arm Sitting Blood Pressure: 136/82 Blood Pressure Mean: 100 Blood Pressure Source: Automatic Cuff Medical Screen Scoring (Pre) - Cervical Exam Dilation: 4-7 cm = 2 Effacement: More than 50% = 2 Membranes: Intact - Uterine Contractions Frequency: > 5 minutes apart = 1 Duration: > 40 seconds = 2 - Total Score Total Score (Pre): 7 - Level of Risk Level of Risk: Medium (6-9) Medical Screen Scoring (Post) - Cervical Exam Dilation: 4-7 cm = 2 Effacement: More than 50% = 2 Membranes: Intact - Uterine Contractions Frequency: > 5 minutes apart = 1 Duration: > 40 seconds = 2 - Assessment Heart Rate - NICHD Category: Category I (Normal) = 0 - Total Score Total Score (Post): 7 Physician Notification (Post) - Physician Notified Physician Notified Date: 01/27/19 Physician Notified Time: 21:57 Spoke With: Sherin New Order Received: Yes (No cervical change management administrator one hour then discharge to home) - Notification Comment Comment: has IOL scheduled Tuesday 01/30 Disposition - Disposition OB Disposition: Discharge to home, Written follow up instructions reviewed Discharge Date: 01/27/19 Discharge Time: 22:45 I agree with the RN Medical Screening Exam: Yes Risk & Benefit of care provided described in d/c instruction: Yes Diagnosis: FALSE LABOR AT OR AFTER 37 COMPLETED WEEKS OF GESTATION
== END 2019-01-27 22:45 | disposition home or self-care (01) ==
LOC: FBPOP 20:50
PROVIDERS: ATTEND Obstetrics & Gynecology
DX: O47.1 False labor at or after 37 completed weeks of gestation (principal); Z3A.39 39 weeks gestation of pregnancy
CPT/HCPCS: 59025; 84112; G0463; 99213

== ENCOUNTER 2019-01-28 02:30 | Inpatient (IN) | payer OTHER ==
[2019-01-28] MEDS ORDERED: METHYLERGONOVINE 0.2 MG/ML 1 ML AMP IM PRN (02:45)
[2019-01-28] MEDS ORDERED: CARBOPROST TROMETHAMINE 250 MCG/ML 1 ML AMP IM PRN (02:45)
[2019-01-28] MEDS: LACTATED RINGERS 1,000 ML IV SCH ×2 (02:45→03:28)
[2019-01-28] MEDS ORDERED: OXYTOCIN 10 UNIT/ML 1 ML VIAL IM PRN (02:45)
[2019-01-28] MEDS ORDERED: TERBUTALINE 1 MG/ML VIAL SQ PRN (02:45)
[2019-01-28] MEDS ORDERED: LIDOCAINE 0.5% (PF) 5 MG/ML (50 ML SDV) SQ PRN (02:45)
[2019-01-28 02:55] LABS: Basophils % (A) 0 %; Eosinophils # (A) 0.2 k/uL (0-0.7); Eosinophils % (A) 2 %; HCT 35.6 % (34.0-46.0); HGB 11.7 gm/dL (11.4-16.0); Lymphocytes # (A) 1.9 k/uL (1.0-4.8); Lymphocytes % (A) 22 %; MCH 27.5 pg (25.0-35.0); MCHC 32.9 g/dL (31.0-37.0); MCV 83.4 fL (80.0-100.0); Mean Platelet Volume 9.2; Monocytes # (A) 0.3 k/uL (0-1.0); Monocytes % (A) 4 %; Neutrophils % (A) 70 %; Platelet Count 191 k/uL (150-450); RBC 4.27 m/uL (3.80-5.40); RDW 15.1 % (11.5-15.5); WBC 8.6 k/uL (3.8-10.6)
[2019-01-28] MEDS ORDERED: ROPIVACAINE 5MG/ML 20ML VIAL ONE (02:55)
[2019-01-28] MEDS ORDERED: fentaNYL (PF) 50 MCG/ML 5 ML AMP ONE (02:55)
[2019-01-28] MEDS ORDERED: SODIUM CHLORIDE 0.9% 100 ML BAG ONE (02:55)
--- NOTE | 2019-01-28 03:32 | P.HPOB ---
History of Present Illness H&P Date: 01/28/19 Chief Complaint: Contractions This is a 28-year-old female 3 para 2 with an estimated date of confinement of 01/30/2019, estimated gestational age of 39-5/7 weeks, who presents to labor and delivery with complaints of contractions that have regular and more intense. Her care has been with Dr. Lynch and has been uncomplicated per patient. She did have a low-lying placenta earlier in the that did resolve. labs: Hepatitis B surface antigen-negative RPR-nonreactive Rubella-immune Blood type-O+ Antibody screen-negative HIV-nonreactive Hemoglobin-13.7 Toxoplasma-negative Random glucose-82 Obstetrical ultrasound-normal anatomy One hour Glucola-134 Three-hour Glucola-within normal limits Group B streptococcus-negative Obstetrical history:. History of 2 vaginal deliveries at term. Gynecologic history: No history of sexual transmitted diseases. She does have a history of abnormal Pap smears in the past. Review of Systems Constitutional: Denies chills, Denies fever Eyes: denies blurred vision, denies pain Ears, nose, mouth and throat: Denies headache, Denies sore throat Cardiovascular: Denies chest pain, Denies shortness of breath Respiratory: Denies cough Gastrointestinal: Reports abdominal pain (Contractions) Genitourinary: Reports pelvic pain, Reports Musculoskeletal: Reports low back pain Neurological: Denies numbness, Denies weakness Psychiatric: Denies anxiety, Denies depression Past Medical History Past Medical History: No Reported History Additional Past Medical History / Comment(s): migraines History of Any Multi-Drug Resistant Organisms: None Reported Past Surgical History: Tonsillectomy Past Anesthesia/Blood Transfusion Reactions: No Reported Reaction Past Psychological History: No Psychological Hx Reported Smoking Status: Never smoker Past Alcohol Use History: None Reported Past Drug Use History: None Reported - Past Family History Mother Family Medical History: No Reported History Medications and Allergies Home Medications Medication Instructions Recorded Confirmed Type Pnv No.95/Ferrous Fum/Folic AC 1 each PO DAILY 01/14/19 01/28/19 History [ Multivitamin Tablet] Cefuroxime [Ceftin] 250 mg PO BID 01/27/19 01/28/19 History Allergies Allergy/AdvReac Type Severity Reaction Status Date / Time amoxicillin Allergy Rash/Hives Verified 01/28/19 02:45 Penicillins Allergy Rash/Hives Verified 01/28/19 02:45 Exam Osteopathic Statement: *. No significant issues noted on an osteopathic structural exam other than those noted in the History and Physical/Consult. Intake and Output 01/27/19 01/27/19 01/28/19 14:59 22:59 06:59 Other: Weight 79.832 kg HEENT: Within normal limits Heart: Regular rate and rhythm Lungs: Clear to auscultation bilaterally Abdomen: Cervix: 7 cm/90%/-1 station with bulging bag heart tones: Reactive category 1 Contractions: Every 3-4 minutes Extremities: Negative Homans Results Result Diagrams: 01/28/19 02:40 Assessment and Plan (1) 39 weeks gestation of Current Visit: Yes Status: Acute Code(s): Z3A.39 - 39 WEEKS GESTATION OF SNOMED Code(s): 37452161 (2) Normal labor Current Visit: No Status: Resolved Code(s): O80 - ENCOUNTER FOR FULL-TERM UNCOMPLICATED DELIVERY; Z37.9 - OUTCOME OF DELIVERY, UNSPECIFIED SNOMED Code(s): 31527252 Plan: Admission for active labor. Epidural anesthesia. Expectant management.
--- NOTE | 2019-01-28 03:34 | P.MSEPDOC ---
Presenting Problems - Arrival Data Date of Arrival on Unit: 01/28/19 Disposition - Disposition OB Disposition: Admit I agree with the RN Medical Screening Exam: Yes Risk & Benefit of care provided described in d/c instruction: Yes Diagnosis: ENCOUNTER FOR FULL-TERM UNCOMPLICATED DELIVERY
[2019-01-28 03:41] VITALS: BMI 31.1
--- NOTE | 2019-01-28 05:35 | P.PROBDLV ---
Vaginal Delivery Note - . Vaginal Delivery Note: The patient progressed to complete dilation after artificial rupture membranes with thin meconium noted. She did receive epidural anesthesia. Once reaching complete dilation, she began pushing. Infant's head came to a crown. With one further push, the infant's head delivered across the perineum followed by the anterior shoulder and a left occiput anterior lie. Nose and mouth are bulb suctioned at the perineum. With one remaining push, the remainder the easily delivered and was placed on mother's abdomen. Brisk cry was noted immediately. Cord was clamped and cut and was taken to warmer for evaluation. Cord blood was obtained secondary to O+ blood type. A viable female infant is noted with scores of 9 at 1 minute and 9 at 5 minutes. Infant weight is pending at this time. Placenta delivered shortly thereafter, intact, with a three-vessel cord. Uterus contracted well after oxytocin was given and uterine massage was carried out. Inspection of the perineum revealed no perineal lacerations. Estimated blood loss is approximately 150 mL's. Both mother and infant are in stable condition.
[2019-01-28] MEDS ORDERED: diphenhydrAMINE 25 MG CAP PO PRN (05:38)
[2019-01-28] MEDS ORDERED: WITCH HAZEL 1 EACH MED..PAD TOPICAL PRN (05:38)
[2019-01-28] MEDS ORDERED: ZOLPIDEM 5 MG TAB PO PRN (05:38)
[2019-01-28] MEDS ORDERED: HYDROCORTISONE 2.5% RECTAL CREAM 30 GM TUBE RECTAL PRN (05:38)
[2019-01-28] MEDS ORDERED: LANOLIN CREAM 5 GM TUBE TOPICAL PRN (05:38)
[2019-01-28] MEDS ORDERED: diphenhydrAMINE 50 MG/ML 1 ML VIAL IVP PRN ×2 (05:38)
[2019-01-28] MEDS ORDERED: SIMETHICONE 80 MG CHEWABLE PO PRN (05:38)
[2019-01-28] MEDS ORDERED: OXYTOCIN 20 UNITS/1000 ML NS 1,000 ML IV SCH (05:38)
[2019-01-28] MEDS ORDERED: diphenhydrAMINE 50 MG CAP PO PRN (05:38)
[2019-01-28] MEDS ORDERED: ACETAMINOPHEN TAB 325 MG TAB PO PRN (05:38)
[2019-01-28] MEDS ORDERED: BENZOCAINE/MENTHOL SPRAY 1 GM/SPRAY AEROSOL TOPICAL PRN (05:38)
[2019-01-28] MEDS: CEFDINIR 300 MG CAP PO SCH ×2 (09:29→20:52)
[2019-01-28] MEDS: SENNOSIDES-DOCUSATE SODIUM 1 EACH TAB PO SCH ×2 (09:38→20:47)
[2019-01-28] MEDS: IBUPROFEN 600 MG TAB PO PRN ×3 (09:38→20:47)
[2019-01-29] MEDS: IBUPROFEN 600 MG TAB PO PRN ×2 (02:43→08:10)
[2019-01-29 07:01] LABS: Basophils % (A) 0 %; Eosinophils # (A) 0.2 k/uL (0-0.7); Eosinophils % (A) 3 %; HCT 30.6 % (34.0-46.0); HGB 10.1 gm/dL (11.4-16.0); Hypochromasia Slight; Lymphocytes # (A) 1.8 k/uL (1.0-4.8); Lymphocytes % (A) 25 %; MCH 28.2 pg (25.0-35.0); MCHC 33.1 g/dL (31.0-37.0); MCV 85.4 fL (80.0-100.0); Mean Platelet Volume 10.7; Monocytes # (A) 0.3 k/uL (0-1.0); Monocytes % (A) 4 %; Neutrophils # (A) 4.8 k/uL (1.3-7.7); Neutrophils % (A) 66 %; Platelet Count 142 k/uL (150-450); RBC 3.58 m/uL (3.80-5.40); WBC 7.2 k/uL (3.8-10.6)
[2019-01-29 09:28] VITALS: BP 111/68; PULSE 80; RESP 18; TEMP 98.1
[2019-01-29] MEDS: SENNOSIDES-DOCUSATE SODIUM 1 EACH TAB PO SCH (09:59)
[2019-01-29] MEDS: CEFDINIR 300 MG CAP PO SCH (10:02)
== END 2019-01-29 10:30 | disposition home or self-care (01) | DRG 806 ==
LOC: FBPOP 02:30 → 4FBP 02:31
PROVIDERS: ADMIT Obstetrics & Gynecology; ATTEND Obstetrics & Gynecology
PROC: 10E0XZZ Delivery of Products of Conception, External Approach (ICD-10-PCS; principal; 2019-01-28)
PROC: 00HU33Z Insertion of Infusion Device into Spinal Canal, Percutaneous Approach (ICD-10-PCS; 2019-01-28)
PROC: 3E0R3BZ Introduction of Anesthetic Agent into Spinal Canal, Percutaneous Approach (ICD-10-PCS; 2019-01-28)
DX: O77.0 Labor and delivery complicated by meconium in amniotic fluid (principal); O44.42 Low lying placenta NOS or without hemorrhage, second trimester; Z37.0 Single live birth; Z3A.39 39 weeks gestation of pregnancy; G43.909 Migraine, unspecified, not intractable, without status migrainosus; Z79.899 Other long term (current) drug therapy; Z88.0 Allergy status to penicillin
CPT/HCPCS: 85025; 86850; 86900; 86901

== ENCOUNTER 2019-05-28 19:29 | Emergency (ER) | payer OTHER ==
[2019-05-28 19:35] VITALS: BP 136/86; PULSE 93; RESP 18; TEMP 98.2
[2019-05-28 20:12] LABS: Appearance,Urine Clear (Clear); Bilirubin,Urine Negative (Negative); Blood,Urine Negative (Negative); Color,Urine Yellow; Glucose,Urine (UA) Negative (Negative); Ketones,Urine Negative (Negative); Leukocyte Esterase,Urine Trace (Negative); Mucus,Urine Rare /hpf; Nitrite,Urine Negative (Negative); Protein,Urine Negative (Negative); RBC,Urine 1 /hpf (0-5); Specific Gravity,Urine 1.031 (1.001-1.035); Squamous Epithelial Cell,Urine 4 /hpf (0-4); WBC,Urine 1 /hpf (0-5)
[2019-05-28] MEDS ORDERED: ONDANSETRON 4 MG/2 ML VIAL IVP STA (21:04)
[2019-05-28 21:22] LABS: Basophils # (A) 0.1 k/uL (0-0.2); Basophils % (A) 1 %; Eosinophils # (A) 0.4 k/uL (0-0.7); Eosinophils % (A) 7 %; HCT 41.2 % (34.0-46.0); Lymphocytes # (A) 1.8 k/uL (1.0-4.8); Lymphocytes % (A) 31 %; MCH 27.3 pg (25.0-35.0); MCHC 31.5 g/dL (31.0-37.0); MCV 86.8 fL (80.0-100.0); Mean Platelet Volume 7.8; Monocytes # (A) 0.2 k/uL (0-1.0); Monocytes % (A) 3 %; Neutrophils # (A) 3.4 k/uL (1.3-7.7); Neutrophils % (A) 56 %; Platelet Count 197 k/uL (150-450); RBC 4.75 m/uL (3.80-5.40); RDW 13.6 % (11.5-15.5)
[2019-05-28 21:30] LABS: ALT 22 U/L (9-52); AST 21 U/L (14-36); African American GFR (CKD) >90 (>60 ml/min/1.73 sqM); Albumin 4.2 g/dL (3.5-5.0); Alkaline Phosphatase 82 U/L (38-126); Amylase 73 U/L (30-110); Anion Gap 8 mmol/L; Blood Urea Nitrogen 18 mg/dL (7-17); Calcium 9.1 mg/dL (8.4-10.2); Carbon Dioxide 25 mmol/L (22-30); Chloride 108 mmol/L (98-107); Glucose 94 mg/dL (74-99); Potassium 4.1 mmol/L (3.5-5.1); Sodium 141 mmol/L (137-145); Total Bilirubin 0.2 mg/dL (0.2-1.3)
--- NOTE | 2019-05-28 21:58 | US ---
EXAMINATION TYPE: US gallbladder DATE OF EXAM: 05/28/2019 COMPARISON: NONE CLINICAL HISTORY: Pain. RUQ pain x 1 week. Nausea. No vomiting. EXAM MEASUREMENTS: Liver Length: 14.9 cm Gallbladder Wall: 0.21 cm CBD: 0.39 cm Right Kidney: 9.9 x 4.9 x 3.8 cm Pancreas: appears wnl Liver: appears wnl Gallbladder: appears partially contracted, no shadowing gallstones Evidence for sonographic Alejo's sign: no CBD: appears wnl, limited Right Kidney: No hydronephrosis or masses seen IMPRESSION: SUBOPTIMAL STUDY DUE TO CONTRACTED GALLBLADDER WITHOUT SHADOWING MOBILE GALLSTONES OR ULT RASOUND EVIDENCE FOR ACUTE CHOLECYSTITIS
--- NOTE | 2019-05-28 22:34 | ED ---
Abdominal Pain HPI - General Chief Complaint: Abdominal Pain Stated Complaint: ABd Pain Time Seen by Provider: 05/28/19 20:30 Source: patient Mode of arrival: ambulatory Limitations: no limitations - History of Present Illness Initial Comments: Patient is a 29-year-old male presenting to emergency Department with a chief complaint of abdominal pain. Patient reports pain started approximately 4 days ago and is slowly increasing severity. Patient reports the pain is currently a 6 and dull. Patient reports onset of pain after eating fatty meals. Patient reports no alleviating factors. Patient does report intermittent nausea but no vomiting or diarrhea. Patient reports the pain does not radiate anywhere. Patient denies any back pain or chest pain. Patient denies taking any medication to alleviate the symptoms.patient denies increased urgency, frequency or dysuria. Patient denies possibility for . Patient denies any vaginal symptoms. - Related Data Home Medications Medication Instructions Recorded Confirmed Multivitamins, Thera [Multivitamin 1 tab PO DAILY 05/28/19 05/28/19 (formulary)] Allergies Allergy/AdvReac Type Severity Reaction Status Date / Time amoxicillin Allergy Rash/Hives Verified 05/28/19 20:05 Penicillins Allergy Rash/Hives Verified 05/28/19 20:05 Review of Systems ROS Statement: Those systems with pertinent positive or pertinent negative responses have been documented in the HPI. ROS Other: All systems not noted in ROS Statement are negative. Past Medical History Past Medical History: No Reported History Additional Past Medical History / Comment(s): migraines History of Any Multi-Drug Resistant Organisms: None Reported Past Surgical History: Tonsillectomy Past Anesthesia/Blood Transfusion Reactions: No Reported Reaction Past Psychological History: No Psychological Hx Reported Smoking Status: Never smoker Past Alcohol Use History: None Reported Past Drug Use History: None Reported - Past Family History Mother Family Medical History: No Reported History General Exam Limitations: no limitations General appearance: alert, in no apparent distress Head exam: Present: atraumatic, normocephalic, normal inspection Eye exam: Present: normal appearance, PERRL, EOMI Pupils: Present: normal accommodation ENT exam: Present: normal exam, normal oropharynx, mucous membranes moist, TM's normal bilaterally, normal external ear exam Neck exam: Present: normal inspection, full ROM Respiratory exam: Present: normal lung sounds bilaterally Cardiovascular Exam: Present: regular rate, normal rhythm, normal heart sounds GI/Abdominal exam: Present: soft, tenderness (Quadrant), normal bowel sounds. Absent: distended, guarding, rebound, rigid, mass, other (Negative McBurney point tenderness, negative Alejo sign, negative Rovsing, negative obturator, negative psoas.) Extremities exam: Present: normal inspection, full ROM Back exam: Present: normal inspection, full ROM Neurological exam: Present: alert, oriented X3 Psychiatric exam: Present: normal affect, normal mood Skin exam: Present: warm, intact, normal color Course Vital Signs 05/28/19 19:32 Temperature 98.2 F Pulse Rate 93 Respiratory 18 Rate Blood Pressure 136/86 O2 Sat by Pulse 100 Oximetry Medical Decision Making - Medical Decision Making Patient is a 21-year-old female presenting to emergency Department with a chief complaint of abdominal pain. Qualitative hCG is negative. CBC and CMP unremarkable. UA is unremarkable. Right upper quadrant ultrasound had suboptimal results due to a contracted gallbladder. No stones shadowing was detected. No pericolic fluid detected no signs of cholecystitis. Negative Alejo sign. At this point I suspect the patient to have biliary colic. Patient advised to change diet by limiting fatty food intake. Patient advised to follow-up with primary care for further management. Strict return parameters were thoroughly discussed patient was understanding and agreeable. Case discussed with physician. - Lab Data Result diagrams: 05/28/19 21:14 05/28/19 21:14 Lab Results 05/28/19 05/28/19 05/28/19 Range/Units 20:02 20:02 21:14 WBC (3.8-10.6) k/uL RBC (3.80-5.40) m/uL Hgb (11.4-16.0) gm/dL Hct (34.0-46.0) % MCV (80.0-100.0) fL MCH (25.0-35.0) pg MCHC (31.0-37.0) g/dL RDW (11.5-15.5) % Plt Count (150-450) k/uL Neutrophils % % Lymphocytes % % Monocytes % % Eosinophils % % Basophils % % Neutrophils # (1.3-7.7) k/uL Lymphocytes # (1.0-4.8) k/uL Monocytes # (0-1.0) k/uL Eosinophils # (0-0.7) k/uL Basophils # (0-0.2) k/uL Sodium 141 (137-145) mmol/L Potassium 4.1 (3.5-5.1) mmol/L Chloride 108 H (98-107) mmol/L Carbon Dioxide 25 (22-30) mmol/L Anion Gap 8 mmol/L BUN 18 H (7-17) mg/dL Creatinine 0.62 (0.52-1.04) mg/dL Est GFR (CKD-EPI)AfAm >90 (>60 ml/min/1.73 sqM) Est GFR (CKD-EPI)NonAf >90 (>60 ml/min/1.73 sqM) Glucose 94 (74-99) mg/dL Calcium 9.1 (8.4-10.2) mg/dL Total Bilirubin 0.2 (0.2-1.3) mg/dL AST 21 (14-36) U/L ALT 22 (9-52) U/L Alkaline Phosphatase 82 (38-126) U/L Total Protein 7.0 (6.3-8.2) g/dL Albumin 4.2 (3.5-5.0) g/dL Amylase 73 (30-110) U/L Lipase 122 (23-300) U/L Urine Color Yellow Urine Appearance Clear (Clear) Urine pH 7.0 (5.0-8.0) Ur Specific [place] 1.031 (1.001-1.035) Urine Protein Negative (Negative) Urine Glucose (UA) Negative (Negative) Urine Ketones Negative (Negative) Urine Blood Negative (Negative) Urine Nitrite Negative (Negative) Urine Bilirubin Negative (Negative) Urine Urobilinogen 2.0 (<2.0) mg/dL Ur Leukocyte Esterase Trace H (Negative) Urine RBC 1 (0-5) /hpf Urine WBC 1 (0-5) /hpf Ur Squamous Epith Cells 4 (0-4) /hpf Urine Mucus Rare H (None) /hpf Urine HCG, Qual Not Detected (Not Detectd) 05/28/19 Range/Units 21:14 WBC 6.0 (3.8-10.6) k/uL RBC 4.75 (3.80-5.40) m/uL Hgb 13.0 (11.4-16.0) gm/dL Hct 41.2 (34.0-46.0) % MCV 86.8 (80.0-100.0) fL MCH 27.3 (25.0-35.0) pg MCHC 31.5 (31.0-37.0) g/dL RDW 13.6 (11.5-15.5) % Plt Count 197 (150-450) k/uL Neutrophils % 56 % Lymphocytes % 31 % Monocytes % 3 % Eosinophils % 7 % Basophils % 1 % Neutrophils # 3.4 (1.3-7.7) k/uL Lymphocytes # 1.8 (1.0-4.8) k/uL Monocytes # 0.2 (0-1.0) k/uL Eosinophils # 0.4 (0-0.7) k/uL Basophils # 0.1 (0-0.2) k/uL Sodium (137-145) mmol/L Potassium (3.5-5.1) mmol/L Chloride (98-107) mmol/L Carbon Dioxide (22-30) mmol/L Anion Gap mmol/L BUN (7-17) mg/dL Creatinine (0.52-1.04) mg/dL Est GFR (CKD-EPI)AfAm (>60 ml/min/1.73 sqM) Est GFR (CKD-EPI)NonAf (>60 ml/min/1.73 sqM) Glucose (74-99) mg/dL Calcium (8.4-10.2) mg/dL Total Bilirubin (0.2-1.3) mg/dL AST (14-36) U/L ALT (9-52) U/L Alkaline Phosphatase (38-126) U/L Total Protein (6.3-8.2) g/dL Albumin (3.5-5.0) g/dL Amylase (30-110) U/L Lipase (23-300) U/L Urine Color Urine Appearance (Clear) Urine pH (5.0-8.0) Ur Specific [place] (1.001-1.035) Urine Protein (Negative) Urine Glucose (UA) (Negative) Urine Ketones (Negative) Urine Blood (Negative) Urine Nitrite (Negative) Urine Bilirubin (Negative) Urine Urobilinogen (<2.0) mg/dL Ur Leukocyte Esterase (Negative) Urine RBC (0-5) /hpf Urine WBC (0-5) /hpf Ur Squamous Epith Cells (0-4) /hpf Urine Mucus (None) /hpf Urine HCG, Qual (Not Detectd) Disposition Clinical Impression: Biliary colic Disposition: HOME SELF-CARE Condition: Stable Instructions (If sedation given, give patient instructions): Biliary Colic (ED) Additional Instructions: Please avoid a high-fat diet. Please follow up with primary care for further evaluation. Please return to emergency department if symptoms worsen. Is patient prescribed a controlled substance at d/c from ED?: No Referrals: Yobani Champagne MD [Primary Care Provider] - 1-2 days Time of Disposition: 22:36
== END 2019-05-28 22:50 | disposition home or self-care (01) ==
LOC: EC 19:29
DX: K80.50 Calculus of bile duct without cholangitis or cholecystitis without obstruction (principal); Z88.0 Allergy status to penicillin
CPT/HCPCS: 36415; 80053; 82150; 83690; 85025; 81001; 81025; 76705; 99284; 96374; J2405

== ENCOUNTER → 2019-07-11 | Outpatient (CLI) | payer OTHER ==
--- NOTE | 2019-07-11 09:29 | NM ---
EXAMINATION TYPE: NM hepatobiliary w EF DATE OF EXAM: 07/11/2019 COMPARISON: Gallbladder ultrasound May 28, 2019. HISTORY: Biliary colic Per order. Epigastric and abdominal pain with diminished appetite, heartburn a nd reflux-like symptoms with nausea. TECHNIQUE: After the intravenous administration of 4.69 mCi Tc 99m Mebrofenin hepatobiliary scintigra phy is performed. Immediate images post injection. FINDINGS: There is satisfactory initial accumulation of tracer by the liver. The gallbladder is visualized wit hin 15 minutes. The small bowel activity is noted within 25 minutes. At one hour 8 ounces of oral e nsure plus is given to mimic CCK and gallbladder ejection fraction is calculated at 86 %, not deviate d from normal range. Therefore there is no scintigraphic evidence of cystic or common bile duct obst ruction to suggest acute cholecystitis . IMPRESSION: Ejection fraction is 86%, not deviated from the normal range.
== END | disposition home or self-care (01) ==
LOC: RADNMMAIN 07:04
PROVIDERS: ATTEND Student in an Organized Health Care Education/Training Program
DX: K80.50 Calculus of bile duct without cholangitis or cholecystitis without obstruction (principal)
CPT/HCPCS: 78226; A9537

== ENCOUNTER → 2022-06-23 | Outpatient (CLI) | payer OTHER ==
--- NOTE | 2022-06-23 11:41 | US ---
EXAMINATION TYPE: Transabdominal DATE OF EXAM: 06/23/2022 8:06 AM COMPARISON: NONE CLINICAL HISTORY: Z36.89 CONFIRM GESTATIONAL AGE. EXAM PERFORMED: Transabdominal (TA) EXAM MEASUREMENTS: GESTATIONAL AGE / DATING Physician Established: (10 weeks/6 days) EDC: 01/13/2023 Dates by LMP: (10 weeks/6 days) EDC: 01/13/2023 Dates by First Scan: No previous this is first scan Dates by Current Scan for: (11 weeks/1 days) EDC: 01/11/2023 MATERNAL ANATOMY Uterus: 11.2 x 7.4 x 8.6cm Right Ovary: 2.6 x 1.6 x 2.1cm Left Ovary: 3.2 x 1.4 x 3.2cm Post CDS / Adnexa: wnl Presence of free fluid: no Presence of corpus luteal cyst: not seen Presence of subchorionic bleed: no GESTATION / SURVEY CRL: 4.2cm (11 weeks/1 days) Yolk Sac (normal less than 6mm): not seen Heart Rate: 170 bpm Rhythm: Normal IUP: Viable IUP Date of LMP: 04/08/2022 IMPRESSION: Viable intrauterine with ultrasound age of 11 weeks 1 day.
== END | disposition home or self-care (01) ==
LOC: RADUSWWP 10:44
PROVIDERS: ATTEND Obstetrics & Gynecology
DX: Z36.89 Encounter for other specified antenatal screening (principal); Z3A.11 11 weeks gestation of pregnancy
CPT/HCPCS: 76801

== ENCOUNTER → 2022-10-11 | Outpatient (CLI) | payer OTHER ==
[2022-10-11 14:29] LABS: HCT 33.3 % (37.2-46.3); HGB 10.6 g/dL (12.0-15.0); MCH 29.8 pg (27.0-32.0); MCHC 31.8 g/dL (32.0-37.0); MCV 93.5 fL (80.0-97.0); Mean Platelet Volume 10.9 fL (9.5-12.2); NRBC Per 100 WBC 0 /100 WBCS (0.0-0.0); Platelet Count 152 X 10*3/uL (140-440); RBC 3.56 X 10*6/uL (4.10-5.20); RDW 12.2 % (11.5-14.5); WBC 5.17 X 10*3/uL (4.50-10.00)
== END | disposition home or self-care (01) ==
LOC: LABWHC1 09:10
PROVIDERS: ATTEND Obstetrics & Gynecology
DX: Z34.82 Encounter for supervision of other normal pregnancy, second trimester (principal); Z3A.00 Weeks of gestation of pregnancy not specified
CPT/HCPCS: 36415; 82950; 85027

== ENCOUNTER 2022-12-05 08:01 | Outpatient (CLI) | payer OTHER ==
[2022-12-05 09:06] VITALS: BP 139/83; PULSE 116; RESP 16; TEMP 97.4
--- NOTE | 2022-12-09 12:47 | P.MSEPDOC ---
Presenting Problems - Arrival Data Date of Arrival on Unit: 12/05/22 Time of Arrival on Unit: 08:02 Mode of Transport: Ambulatory - Complaint OB-Reason for Admission/Chief Complaint: NST Medical History - Information : 4 Para: 3 Number of Living Children: 3 - Gestational Age Gestational Age by ANNMARIE (wks/days): 34 Weeks and 3 Days Review of Systems - Review of Systems Constitutional: No problems Breast: No problems ENT: No problems Cardiovascular: No problems Respiratory: No problems Gastrointestinal: No problems Genitourinary: No problems Musculoskeletal: No problems Neurological: No problems Skin: No problems Vital Signs - Temperature Temperature: 97.4 F Temperature Source: Temporal Artery Scan - Pulse Right Sitting Brachial Pulse Rate: 116 Pulse Assessment Method: Automatic Cuff - Respirations Respiratory Rate: 16 Oxygen Delivery Method: Room Air O2 Sat by Pulse Oximetry: 99 - Blood Pressure Right Arm Sitting Blood Pressure: 139/83 Blood Pressure Mean: 101 Blood Pressure Source: Automatic Cuff Medical Screen Scoring - Assessment - Baby A Baseline FHR: 145 Heart Rate - NICHD Category: Category I (Normal) NST: Reactive Physician Notification - Physician Notified Physician Notified Date: 12/05/22 Physician Notified Time: 08:50 Physician: Uyen Lynch New Order Received: Yes Maternal Triage Index - Maternal Triage Index Presenting for scheduled procedure w/no complaint: No - Stat/Priority 1 Stat Priority 1: No - Urgent/Priority 2 Urgent Priority 2: Yes Provider Notified: Uyen Lynch Provider Notified Time: 08:29 Criteria Met for Priority 2: decreased movement Disposition - Disposition OB Disposition: Discharge to home Discharge Date: 12/05/22 Discharge Time: 08:55 I agree with the RN Medical Screening Exam: Yes Case reviewed; plan agreed upon as documented in EMR&OBIX.: Yes Diagnosis: DECREASED MOVEMENTS, THIRD TRIMESTER, FETUS 1
== END 2022-12-05 08:55 | disposition home or self-care (01) ==
LOC: FBPOP 08:01
PROVIDERS: ATTEND Obstetrics & Gynecology
DX: O36.8131 Decreased fetal movements, third trimester, fetus 1 (principal); Z3A.34 34 weeks gestation of pregnancy; Z88.0 Allergy status to penicillin
CPT/HCPCS: 59025; G0463; 99213

== ENCOUNTER 2023-01-04 21:03 | Inpatient (IN) | payer OTHER ==
[2023-01-04] MEDS ORDERED: miSOPROStoL 200 MCG TAB PO PRN (21:32)
[2023-01-04] MEDS ORDERED: METHYLERGONOVINE 0.2 MG/ML 1 ML AMP IM PRN (21:32)
[2023-01-04] MEDS ORDERED: TRANEXAMIC ACID IN NACL,ISO-OS 1,000 MG in EMPTY BAG 1 BAG IV PRN (21:32)
[2023-01-04] MEDS ORDERED: TERBUTALINE 1 MG/ML VIAL SQ PRN (21:32)
[2023-01-04] MEDS ORDERED: LIDOCAINE 0.5% (PF) 5 MG/ML (50 ML SDV) SQ PRN (21:32)
[2023-01-04] MEDS ORDERED: CARBOPROST TROMETHAMINE 250 MCG/ML 1 ML AMP IM PRN (21:32)
[2023-01-04] MEDS ORDERED: OXYTOCIN 10 UNIT/ML 1 ML VIAL IM PRN (21:32)
[2023-01-04] MEDS ORDERED: LACTATED RINGERS 1,000 ML IV SCH (21:45)
[2023-01-04] MEDS ORDERED: ACETAMINOPHEN IV (For NPO) 1,000 MG in EMPTY BAG 1 BAG IVPB STA (21:53)
[2023-01-04 21:56] LABS: Basophils % (A) 0 %; Eosinophils # (A) 0.2 k/uL (0-0.7); Eosinophils % (A) 2 %; HCT 35.3 % (34.0-46.0); HGB 11.9 gm/dL (11.4-16.0); Lymphocytes # (A) 1.6 k/uL (1.0-4.8); Lymphocytes % (A) 18 %; MCH 28.8 pg (25.0-35.0); MCHC 33.8 g/dL (31.0-37.0); MCV 85.4 fL (80.0-100.0); Mean Platelet Volume 9.2; Monocytes # (A) 0.4 k/uL (0-1.0); Monocytes % (A) 5 %; Neutrophils # (A) 6.5 k/uL (1.3-7.7); Neutrophils % (A) 74 %; Platelet Count 181 k/uL (150-450); RBC 4.13 m/uL (3.80-5.40); RDW 13.3 % (11.5-15.5); WBC 8.8 k/uL (3.8-10.6)
[2023-01-04] MEDS ORDERED: SODIUM CHLORIDE 0.9% 100 ML BAG ONE (22:00)
[2023-01-04] MEDS ORDERED: fentaNYL (PF) 50 MCG/ML 5 ML AMP ONE (22:00)
[2023-01-04] MEDS ORDERED: ROPIVACAINE 5 MG/ML 20 ML AMPULE ONE (22:00)
--- NOTE | 2023-01-04 23:33 | P.HPOB ---
History of Present Illness H&P Date: 01/04/23 Chief Complaint: Labor 32 year old presents at 38 weeks 3 days in labor. Her cervix is 4-5/80/-2 and she is ren every 2-4 minutes. heart tones 150 with moderate variability and reactive. Review of Systems All systems: negative Constitutional: Denies chills, Denies fever Eyes: denies blurred vision, denies pain Ears, nose, mouth and throat: Denies headache, Denies sore throat Cardiovascular: Denies chest pain, Denies shortness of breath Respiratory: Denies cough Gastrointestinal: Denies abdominal pain, Denies diarrhea, Denies nausea, Denies vomiting Genitourinary: Denies dysuria, Denies hematuria Musculoskeletal: Denies myalgias Integumentary: Denies pruritus, Denies rash Neurological: Denies numbness, Denies weakness Psychiatric: Denies anxiety, Denies depression Endocrine: Denies fatigue, Denies weight change Past Medical History Past Medical History: No Reported History Additional Past Medical History / Comment(s): migraines History of Any Multi-Drug Resistant Organisms: None Reported Past Surgical History: Tonsillectomy Past Anesthesia/Blood Transfusion Reactions: No Reported Reaction Past Psychological History: No Psychological Hx Reported Smoking Status: Never smoker Past Alcohol Use History: None Reported Past Drug Use History: None Reported - Past Family History Mother Family Medical History: No Reported History Medications and Allergies Home Medications Medication Instructions Recorded Confirmed Type Multivitamins, Thera [Multivitamin 1 tab PO DAILY 05/28/19 01/04/23 History (formulary)] buPROPion SR [Wellbutrin SR] 1 tab PO DAILY 12/05/22 01/04/23 History Allergies Allergy/AdvReac Type Severity Reaction Status Date / Time amoxicillin Allergy Rash/Hives Verified 12/05/22 08:14 Penicillins Allergy Rash/Hives Verified 12/05/22 08:14 Exam Osteopathic Statement: *. No significant issues noted on an osteopathic structural exam other than those noted in the History and Physical/Consult. Vital Signs Temp Pulse Resp BP Pulse Ox 01/04/23 21:29 97.9 F 101 H 16 138/80 99 Intake and Output 01/04/23 01/04/23 01/05/23 14:59 22:59 06:59 Other: # Voids 2 Weight 78.471 kg Heart: Regular rate and rhythm Lungs: Clear to auscultation bilaterally Abdomen: Soft, nontender Extremities: Negative Homans sign Results Result Diagrams: 01/04/23 21:39 Assessment and Plan (1) Normal labor Current Visit: No Status: Resolved Code(s): O80 - ENCOUNTER FOR FULL-TERM UNCOMPLICATED DELIVERY; Z37.9 - OUTCOME OF DELIVERY, UNSPECIFIED SNOMED Code(s): 46842331 Plan: 1. admit to [facility] 2. expectant management 3. anticipate normal vaginal delivery
[2023-01-05] MEDS ORDERED: diphenhydrAMINE 50 MG/ML 1 ML VIAL IVP PRN ×2 (00:58)
[2023-01-05] MEDS ORDERED: diphenhydrAMINE 25 MG CAP PO PRN (00:58)
[2023-01-05] MEDS ORDERED: HYDROCORTISONE 2.5% RECTAL CREAM 30 GM TUBE RECTAL PRN (00:58)
[2023-01-05] MEDS ORDERED: diphenhydrAMINE 50 MG CAP PO PRN (00:58)
[2023-01-05] MEDS ORDERED: SIMETHICONE 80 MG CHEWABLE PO PRN (00:58)
[2023-01-05] MEDS ORDERED: LANOLIN CREAM 5 GM TUBE TOPICAL PRN (00:58)
[2023-01-05] MEDS ORDERED: BENZOCAINE/MENTHOL SPRAY 1 GM/SPRAY AEROSOL TOPICAL PRN (00:58)
[2023-01-05] MEDS ORDERED: ZOLPIDEM 5 MG TAB PO PRN (00:58)
[2023-01-05] MEDS ORDERED: OXYTOCIN 30 UNITS/500 ML NS 30 UNIT in SALINE 1 500ML.BAG IV SCH (01:00)
--- NOTE | 2023-01-05 01:00 | P.MSEPDOC ---
Presenting Problems - Arrival Data Date of Arrival on Unit: 01/04/23 Time of Arrival on Unit: 21:06 Mode of Transport: Ambulatory - Complaint OB-Reason for Admission/Chief Complaint: Possible Onset of Labor Comment: Patient presents to triage with complaints of contractions that have been about 2 min apart for 2 hours. Medical History - Information : 4 Para: 3 Term: 3 - Gestational Age Gestational Age by ANNMARIE (wks/days): 38 Weeks and 5 Days Review of Systems - Review of Systems Constitutional: No problems Breast: No problems ENT: No problems Cardiovascular: No problems Respiratory: No problems Gastrointestinal: No problems Genitourinary: No problems Musculoskeletal: No problems Neurological: No problems Skin: No problems Vital Signs - Temperature Temperature: 97.9 F Temperature Source: Temporal Artery Scan - Pulse Pulse Oximetery Pulse Rate: 89 Pulse Assessment Method: Automatic Cuff - Respirations Respiratory Rate: 16 Oxygen Delivery Method: Room Air - Blood Pressure Right Arm Blood Pressure: 104/58 Blood Pressure Mean: 73 Blood Pressure Source: Automatic Cuff Medical Screen Scoring - Assessment - Baby A Baseline FHR: 150 Heart Rate - NICHD Category: Category I (Normal) NST: Reactive Physician Notification - Physician Notified Physician Notified Date: 01/04/23 Physician Notified Time: 21:25 Physician: Uyen Lynch Maternal Triage Index - Stat/Priority 1 Stat Priority 1: No - Urgent/Priority 2 Urgent Priority 2: No - Prompt/Priority 3 Prompt Priority 3: No - Non-Urgent/Priority 4 Non-Urgent Priority 4: Yes Criteria Met for Priority 4: Patient presents to triage with complaints of contractions that have been about 2 min apart for 2 hours Disposition - Disposition OB Disposition: Admit I agree with the RN Medical Screening Exam: Yes Case reviewed; plan agreed upon as documented in EMR&OBIX.: Yes Diagnosis: ENCOUNTER FOR FULL-TERM UNCOMPLICATED DELIVERY
--- NOTE | 2023-01-05 01:09 | P.PROBDLV ---
Vaginal Delivery Note - . Vaginal Delivery Note: 32 year old presents at 38 weeks 3 days in labor. Her cervix is 4-5/80/-2 and she is ren every 2-4 minutes. heart tones 150 with moderate variability and reactive. Patient was admitted to [facility] and given an epidural. Amniotomy performed at 2308 and bloody fluid was noted. Soon after she was completely dilated, pushed and delivered a viable male over intact perineum under epidural anesthesia at 2354. Head delivered OA, anterior shoulder delivered gentle downward guidance followed by posterior shoulder and rest of body. Nose and mouth bulb suctioned, cord clamped and cut, infant placed mother's abdomen. Apgars 8, 9, weight 7 lbs. 10 oz. Placenta delivered spontaneously, intact with three-vessel cord at 2355. Vagina, cervix, and perineum were inspected. No lacerations noted. Estimated blood loss 150 mL. Mother and baby in stable condition.
[2023-01-05] MEDS: IBUPROFEN 600 MG TAB PO PRN ×3 (05:18→19:30)
--- NOTE | 2023-01-05 06:23 | P.PNOBGVD ---
Subjective - Subjective Principal diagnosis: S/P normal vaginal delivery day #1 Patient reports: Reports appetite normal, Reports voiding normally, Reports pain well controlled, Reports ambulating normally : doing well Objective - Latest Vital Signs Latest vital signs: Vital Signs Temp Pulse Resp BP Pulse Ox 01/05/23 04:00 98.0 F 80 16 118/67 98 01/05/23 02:07 88 16 107/65 01/05/23 01:37 88 16 107/65 01/05/23 01:07 101 H 16 110/55 01/05/23 00:59 97.9 F 89 16 104/58 01/05/23 00:43 89 16 104/58 01/05/23 00:35 101 H 16 110/55 01/05/23 00:20 85 16 113/53 01/05/23 00:07 104 H 16 129/65 01/04/23 21:29 97.9 F 101 H 16 138/80 99 Intake and Output 01/04/23 01/04/23 01/05/23 14:59 22:59 06:59 Intake Total 194.833 Output Total 225 Balance -30.167 Intake: Intake, IV Titration 194.833 Amount Oxytocin 30 Units/500 ml 194.833 Ns 30 unit In Saline 1 500ml.bag @ Per Protocol IV .Q0M [facility] Rx#:[id number] Output: Estimated Blood Loss 75 Output, Quantitative 150 Blood Loss Other: # Voids 2 3 Weight 78.471 kg - Exam Lungs: bilateral: normal Chest: Normal S1, Normal S2 Extremities: Present: normal Abdomen: Present: normal appearance, soft Uterus: Present: normal, firm Assessment and Plan (1) Normal labor Current Visit: No Status: Resolved Code(s): O80 - ENCOUNTER FOR FULL-TERM UNCOMPLICATED DELIVERY; Z37.9 - OUTCOME OF DELIVERY, UNSPECIFIED SNOMED Code(s): 88761326 (2) Normal vaginal delivery Current Visit: No Status: Acute Code(s): O80 - ENCOUNTER FOR FULL-TERM UNCOMPLICATED DELIVERY SNOMED Code(s): 81043820 Plan: 1. Continue care
[2023-01-05] MEDS: SENNOSIDES-DOCUSATE SODIUM 1 EACH TAB PO SCH ×3 (09:20→21:29)
[2023-01-05] MEDS: ACETAMINOPHEN TAB 325 MG TAB PO PRN ×3 (09:34→21:27)
[2023-01-06] MEDS: IBUPROFEN 600 MG TAB PO PRN ×2 (00:47→07:37)
[2023-01-06 01:39] VITALS: RESP 16
[2023-01-06 07:26] LABS: Basophils % (A) 1 %; Eosinophils # (A) 0.1 k/uL (0-0.7); Eosinophils % (A) 2 %; HCT 34.4 % (34.0-46.0); HGB 11.1 gm/dL (11.4-16.0); Lymphocytes # (A) 1.4 k/uL (1.0-4.8); Lymphocytes % (A) 21 %; MCH 28.5 pg (25.0-35.0); MCHC 32.3 g/dL (31.0-37.0); MCV 88.2 fL (80.0-100.0); Mean Platelet Volume 9.1; Monocytes # (A) 0.3 k/uL (0-1.0); Monocytes % (A) 4 %; Neutrophils # (A) 4.8 k/uL (1.3-7.7); Neutrophils % (A) 71 %; Platelet Count 185 k/uL (150-450); RDW 13.4 % (11.5-15.5); WBC 6.8 k/uL (3.8-10.6)
[2023-01-06] MEDS: SENNOSIDES-DOCUSATE SODIUM 1 EACH TAB PO SCH (07:37)
[2023-01-06 07:47] VITALS: BP 109/68; PULSE 88; TEMP 98
--- NOTE | 2023-01-06 08:48 | P.DS ---
Providers Date of admission: 01/04/23 21:28 Expected date of discharge: 01/06/23 Attending physician: Uyen Lynch Primary care physician: Stated None - Discharge Diagnosis(es) (1) Normal labor Current Visit: No Status: Resolved (2) Normal vaginal delivery Current Visit: No Status: Acute Hospital Course: Patient presented in active labor. She underwent a normal vaginal delivery without complication. course was uneventful. She denies nausea, vomiting, chest pain, shortness of breath or calf pain. Patient will be discharged home day #2 in stable condition to follow-up with me in 6 weeks. Plan - Discharge Summary Discharge Rx Participant: Yes New Discharge Prescriptions: New Ibuprofen [Motrin] 600 mg PO Q6HR PRN #30 tab PRN Reason: Mild Pain (Scale 1 To 3) No Action Multivitamins, Thera [Multivitamin (formulary)] 1 tab PO DAILY buPROPion SR [Wellbutrin SR] 1 tab PO DAILY Discharge Medication List Multivitamins, Thera [Multivitamin (formulary)] 1 tab PO DAILY 05/28/19 [History] buPROPion SR [Wellbutrin SR] 1 tab PO DAILY 12/05/22 [History] Ibuprofen [Motrin] 600 mg PO Q6HR PRN #30 tab 01/06/23 [Rx] Follow up Appointment(s)/Referral(s): Uyen Lynch DO [Doctor of Osteopathic Medicine] - 02/17/23 10:45 am Discharge Disposition: HOME SELF-CARE
[2023-01-06] MEDS: ACETAMINOPHEN TAB 325 MG TAB PO PRN (10:43)
== END 2023-01-06 11:08 | disposition home or self-care (01) | DRG 560 ==
LOC: FBPOP 21:03 → 4FBP 21:28
PROVIDERS: ADMIT Obstetrics & Gynecology; ATTEND Obstetrics & Gynecology
PROC: 10E0XZZ Delivery of Products of Conception, External Approach (ICD-10-PCS; principal; 2023-01-04)
DX: O80 Encounter for full-term uncomplicated delivery (principal); Z37.0 Single live birth; Z3A.38 38 weeks gestation of pregnancy
CPT/HCPCS: 85025; 86850; 86900; 86901

== ENCOUNTER → 2023-03-23 | Outpatient (CLI) | payer OTHER ==
[2023-03-23 13:22] LABS: Basophils % (A) 1 %; Eosinophils # (A) 0.4 k/uL (0-0.7); Eosinophils % (A) 6 %; HCT 41.4 % (34.0-46.0); HGB 13.3 gm/dL (11.4-16.0); Lymphocytes # (A) 1.8 k/uL (1.0-4.8); Lymphocytes % (A) 29 %; MCH 27.7 pg (25.0-35.0); MCV 86.5 fL (80.0-100.0); Mean Platelet Volume 8.6; Monocytes # (A) 0.2 k/uL (0-1.0); Monocytes % (A) 3 %; Neutrophils # (A) 3.5 k/uL (1.3-7.7); Neutrophils % (A) 59 %; Platelet Count 208 k/uL (150-450); RBC 4.79 m/uL (3.80-5.40); RDW 14.6 % (11.5-15.5)
== END | disposition home or self-care (01) ==
LOC: LABPAT 12:09
PROVIDERS: ATTEND Obstetrics & Gynecology
DX: Z01.812 Encounter for preprocedural laboratory examination (principal)
CPT/HCPCS: 85025

== ENCOUNTER 2023-03-24 06:10 | Day surgery (SDC) | payer OTHER ==
--- NOTE | 2023-03-23 11:01 | P.HPOB ---
History of Present Illness H&P Date: 03/23/23 Chief Complaint: family planning 33 year old presents for laparoscopic tubal ligation. Review of Systems All systems: negative Constitutional: Denies chills, Denies fever Eyes: denies blurred vision, denies pain Ears, nose, mouth and throat: Denies headache, Denies sore throat Cardiovascular: Denies chest pain, Denies shortness of breath Respiratory: Denies cough Gastrointestinal: Denies abdominal pain, Denies diarrhea, Denies nausea, Denies vomiting Genitourinary: Denies dysuria, Denies hematuria Musculoskeletal: Denies myalgias Integumentary: Denies pruritus, Denies rash Neurological: Denies numbness, Denies weakness Psychiatric: Denies anxiety, Denies depression Endocrine: Denies fatigue, Denies weight change Past Medical History Past Medical History: No Reported History Additional Past Medical History / Comment(s): migraines History of Any Multi-Drug Resistant Organisms: None Reported Past Surgical History: Tonsillectomy Additional Past Surgical History / Comment(s): wisdom teeth Past Anesthesia/Blood Transfusion Reactions: No Reported Reaction Smoking Status: Never smoker - Past Family History Mother Family Medical History: Thyroid Disorder Medications and Allergies Home Medications Medication Instructions Recorded Confirmed Type Multivitamins, Thera [Multivitamin 1 tab PO DAILY 05/28/19 03/16/23 History (formulary)] buPROPion SR [Wellbutrin SR] 300 mg PO DAILY 12/05/22 03/16/23 History Unk Chasteberry 1 tab PO DAILY 03/16/23 03/16/23 History Allergies Allergy/AdvReac Type Severity Reaction Status Date / Time amoxicillin Allergy Rash/Hives Verified 03/16/23 15:13 Penicillins Allergy Rash/Hives Verified 03/16/23 15:13 Exam Osteopathic Statement: *. No significant issues noted on an osteopathic structural exam other than those noted in the History and Physical/Consult. HEart: RRR Lungs: CTAB Abdomen: soft, nontender Extremeties: neg jason's Assessment and Plan (1) Family planning Status: Acute Code(s): Z30.09 - ENCOUNTER FOR OTH GENERAL CNSL AND ADVICE ON CONTRACEPTION SNOMED Code(s): 298745290 Plan: 1. laparoscopic tubal ligation
[~2023-03-24 06:10] MED LIST: DEXAMETHASONE SOD PHOSPHATE 4 MG/ML 1 ML VIAL IV ONE; LACTATED RINGERS 1,000 ML IV SCH; LIDOCAINE 1% (10MG/ML) FOR IV START INTRADERMA PRN; ONDANSETRON 4 MG/2 ML VIAL IVP ONE; Pre Op ABX Message 1 EACH MISC MISCELLANE ONE; droPERidol 5 MG/2 ML VIAL IVP ONE
[2023-03-24] MEDS ORDERED: DEXAMETHASONE SOD PHOSPHATE 4 MG/ML 1 ML VIAL IVP ONE (07:10)
[2023-03-24] MEDS ORDERED: ONDANSETRON 4 MG/2 ML VIAL IVP ONE (07:10)
[2023-03-24] MEDS ORDERED: ROCURONIUM 10 MG/ML (5 ML VIAL) IV ONE (07:20)
[2023-03-24] MEDS ORDERED: GLYCOPYRROLATE 0.2 MG/ML 2 ML VIAL ONE (07:20)
[2023-03-24] MEDS ORDERED: MIDAZOLAM 2 MG/2 ML VIAL ONE (07:20)
[2023-03-24] MEDS ORDERED: LIDOCAINE 4% LTA KIT (4 ML) TOPICAL ONE (07:20)
[2023-03-24] MEDS ORDERED: LIDOCAINE 2% INJ 20 MG/ML (2 ML VIAL) ONE (07:20)
[2023-03-24] MEDS ORDERED: KETOROLAC 15 MG/ML 1 ML VIAL ONE (07:20)
[2023-03-24] MEDS ORDERED: NEOSTIGMINE 1 MG/ML 10 ML VIAL ONE (07:20)
[2023-03-24] MEDS ORDERED: SUCCINYLCHOLINE CHLORIDE 200 MG/10 ML VIAL IV ONE (07:20)
[2023-03-24] MEDS ORDERED: fentaNYL (PF) 50 MCG/ML 2 ML AMP ONE (07:20)
[2023-03-24] MEDS ORDERED: PROPOFOL 10 MG/ML 20 ML VIAL IV ONE (07:20)
[2023-03-24] MEDS ORDERED: BUPIVACAINE (PF) 0.25% 30 ML VIAL SQ ONE (07:51)
--- NOTE | 2023-03-24 08:00 | P.OP ---
Date of Procedure: 03/24/23 Preoperative Diagnosis: 1. family planning Postoperative Diagnosis: 1. family planning Procedure(s) Performed: Laparoscopic Tubal ligation Anesthesia: YORDY Surgeon: Uyen Lynch Estimated Blood Loss (ml): 3 IV fluids (ml): 200 Urine output (ml): 10 Pathology: none sent Condition: stable Disposition: PACU Description of Procedure: Patient was taken to the operating room where general anesthesia was obtained without difficulty. She was prepped and draped in normal sterile fashion in the dorsal lithotomy position, legs placed in the Eduar stirrups. Bladder drained of all urine. [place] speculum placed in the vagina and the anterior lip the cervix was grasped with single-tooth tenaculum. The uterus is sounded to 8 cm and the kroner manipulator was placed. Attention was then turned to the abdomen and gloves were changed. A 10 mm infraumbilical incision was made the scalpel and 10 mm optical trocar was placed under direct visualization. A 5 mm suprapubic Incision was made and a 5 mm optical trocar was placed under direct visualization. Survey of the pelvis revealed normal uterus tubes and ovaries. The left fallopian tube was grasped with a Kleppinger and fulgurated 2-3 cm on this side in the ampullar portion. The right fallopian tube was grasped with a Kleppinger and fulgurated 2-3 cm in the ampullar portion. All instruments were then removed from the abdomen and vagina. The 10 mm infraumbilical incision was closed with 0 Vicryl and the fascial layer and then 4-0 Vicryl in a subcuticular fashion. The 5 mm incision was closed with 4-0 Vicryl in a subcuticular fashion. Patient tolerated procedure well, sponge and instrument counts correct 2 and she was taken to recovery room in stable condition.
[2023-03-24 08:13] VITALS: TEMP 97
[2023-03-24] MEDS: HYDROmorphone 0.5 MG/0.5 ML SYRINGE IVP PRN ×2 (08:25→08:45)
[2023-03-24] MEDS ORDERED: KETOROLAC 15 MG/ML 1 ML VIAL IVP ONE (08:36)
[2023-03-24 09:28] VITALS: BP 123/75; PULSE 71; RESP 18
== END 2023-03-24 09:48 | disposition home or self-care (01) ==
LOC: OR 06:10
PROVIDERS: ATTEND Obstetrics & Gynecology
DX: Z30.2 Encounter for sterilization (principal); Z90.89 Acquired absence of other organs; Z83.49 Family history of other endocrine, nutritional and metabolic diseases; Z88.0 Allergy status to penicillin
CPT/HCPCS: 81025; 58670; J2250; J0330; J1100; J2710; J2405; J3010; J1885; J2704; J1170; J2001